=== PATIENT | female | born 1995 | race Caucasian/White ===

== ENCOUNTER 2020-08-15 17:26 | Emergency (ER) | payer OTHER, SELFPAY ==
[2020-08-15 17:54] VITALS: BP 150/92; PULSE 111; RESP 20; TEMP 37; O2SAT 100
--- NOTE | 2020-08-15 18:18 | ED.UPPEXIN ---
HPI - Extremity Injury (Upper) General Chief Complaint: Extremity Injury, Upper Stated Complaint: right wrist pain Time Seen by Provider: 08/15/20 18:19 Source: patient and RN notes reviewed History of Present Illness HPI narrative: Patient is a 25-year-old female who presents the urgent care with complaints of persistent right wrist pain. Patient states that she feels it popping at times . Patient states it difficult to bear weight on the right wrist. Denies of any known trauma or injury. 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 Patient has been using ice, elevating and taking Tylenol and ibuprofen for the pain. No other acute complaints. No acute distress noted. Patient aware of the plan of care. Some parts of this dictation were generated by voice recognition software and may contain typographical and/or grammatical inaccuracies. Related Data Home Medications Medication Instructions Recorded [facility]FA 1 tablet PO DAILY 08/15/20 08/15/20 [] Allergies Allergy/AdvReac Type Severity Reaction Status Date / Time peanut Allergy Anaphylaxis Verified 12/01/19 19:34 Review of Systems Review of Systems: Narrative: CONSTITUTIONAL: Denies fever, chills, or sweats. EYES: Denies visual changes, redness, or discharge. ENT: Denies rhinorrhea, congestion, sore throat, or otalgia. CARDIOVASCULAR: Denies chest pain, palpitations, or edema. RESPIRATORY: Denies cough or dyspnea. GASTROINTESTINAL: Denies abdominal pain, nausea, vomiting, or diarrhea. GENITOURINARY: Denies dysuria or hematuria. SKIN: Denies rash or itching. MUSCULOSKELETAL: Reports of right wrist pain NEUROLOGIC: Denies headache, numbness, or weakness. All other systems reviewed are negative, except as documented in HPI. PMFSH Social History Social History Smoking status: Unknown if ever smoked Gender identity (if verbalized by the patient): Female Comments At the time of my signature, I reviewed and agree with the nursing past medical, surgical, social, and family history. There is no relevant family history pertinent to the patient complaint. Exam Narrative: Exam Narrative: GENERAL: This is a well-nourished, well-developed patient, in no apparent distress. HEAD: normocephalic, atraumatic. EYES: PERRL. Sclera clear/white. Vision is grossly intact. EARS: External ears normal NOSE: External nose normal with no obvious nasal discharge, nares without redness, no rhinorrhea. THROAT: Mucous membranes moist NECK: Neck supple SKIN: warm, intact with no suspicious lesions or rash, good texture and turgor. NEURO: awake, alert, and oriented to person, place and time. There were no obvious focal neurologic abnormalities. EXTREMITIES: Mild pain with right wrist range of motion. No obvious deformity or injury noted to the right upper extremity. Positive strong right radial pulse with capillary refill less than 2 seconds. Patient unable to tolerate Tinel maneuver due to pain. Course Vital Signs Vital signs: Vital Signs Temperature 98.6 F 08/15/20 17:54 Pulse Rate 111 H 08/15/20 17:54 Respiratory Rate 08/15/20 17:54 Blood Pressure 150/92 H 08/15/20 17:54 Pulse Oximetry 100 08/15/20 17:54 Temperature 98.6 F 08/15/20 17:54 Pulse Rate 111 H 08/15/20 17:54 Respiratory Rate 08/15/20 17:54 Blood Pressure 150/92 H 08/15/20 17:54 Pulse Oximetry 100 08/15/20 17:54 Reviewed?patient is informed that they may have pre-hypertension or hypertension based on a blood pressure reading in the department. I recommend the patient call the primary care provider listed on their discharge instructions or a physician of their choice this week to arrange follow-up for further evaluation of possible pre-hypertension or hypertension. MDM - Extremity Injury (Upper) MDM Narrative
== END 2020-08-15 18:35 | disposition home or self-care (01) ==
PROVIDERS: Emergency Provider Nurse Practitioner Family; PCP Nurse Practitioner Family
DX: M77.9 Enthesopathy, unspecified (principal)
CPT/HCPCS: 99213; G0463

== ENCOUNTER 2021-03-01 11:51 | Emergency (ER) | payer OTHER, SELFPAY ==
--- NOTE | ~2021-03-01 | US_ITS ---
EXAMINATION: US pelvic complete w TV DATE: 03/01/2021 12:54 INDICATION: Abnormal uterine bleeding. TECHNIQUE: Multiple transabdominal and endovaginal sonographic images of the pelvis were obtained. COMPARISON: None. FINDINGS: The uterus measures 7.7 x 3.3 x 4.4 cm. The endometrial complex measures 5 mm in thickness. Couple l ess than 3 mm anechoic nabothian cysts at the cervix. The right ovary measures 3.2 x 2.1 x 2.8 cm. Th e left ovary measures 4.0 x 2.7 x 2.4 cm. There is normal vascular flow with both venous and arterial waveforms in the ovaries. There is small amount of likely physiologic free fluid in the pelvis. IMPRESSION: 1. Normal pelvic ultrasound. Reviewed, dictated and finalized at location A.
[2021-03-01 11:57] VITALS: BP 146/99; PULSE 99; RESP 14; TEMP 36.2; O2SAT 100
--- NOTE | 2021-03-01 12:11 | ED.GENADULT ---
HPI - General Adult General Chief complaint: Vaginal Bleeding Stated complaint: Vaginal Bleeding x1 month Time Seen by Provider: 03/01/21 11:58 Source: RN notes reviewed History of Present Illness HPI narrative: Patient presents to emergency department from home for dysfunctional uterine bleeding. Patient states she has been having vaginal bleeding for the past 1 month. She is followed by Dr. Tavarez and saw him approximately 10 days ago was placed on Provera which did help with her bleeding she states she stopped this approximately 3 days ago and began to have heavy bleeding again yesterday she states that with this she has had dizziness she denies any fevers or chills she states she does have some mild lower abdominal cramping denies any other symptoms at this time Related Data Home Medications Medication Instructions Recorded Confirmed PNV cmb#95-ferrous fumarate-FA 1 tablet PO DAILY 08/15/20 08/15/20 [] Allergies Allergy/AdvReac Type Severity Reaction Status Date / Time peanut Allergy Anaphylaxis Verified 12/01/19 19:34 Review of Systems Review of Systems: Narrative: Gen.: Denies fevers or chills ENT: Denies congestion Respiratory: Denies shortness of breath or cough CV: Denies chest pain or palpitations GI: Reports lower abdominal cramping, denies nausea, emesis or diarrhea see HPI Musculoskeletal: Denies back pain or muscle pain Neuro: Denies numbness, tingling, weakness or focal weakness Skin: Denies rash Except as documented, all other systems reviewed and negative [facility] Past Medical History Medical History (Updated 03/01/21 @ 13:41 by Glen Cavazos DO) Ankle fracture, right Celiac disease Foot fracture, right Surgical History Surgical History History of appendectomy History of cholecystectomy History of tonsillectomy Social History Social History Smoking status: Unknown if ever smoked Gender identity (if verbalized by the patient): Female Exam Narrative: Exam Narrative: APPEARANCE: No acute distress, nontoxic, resting in bed EYES: EOMI HEENT: Normocephalic, atraumatic, OMM RESPIRATORY: No respiratory distress Clear to auscultation bilaterally with no rhonchi wheezing or rales. CARDIOVASCULAR: Regular rate and rhythm without murmurs rubs or gallops. ABDOMINAL: Soft, nontender, nondistended, no rebound or guarding MUSCULOSKELETAl: Moves all extremities. No clubbing, cyanosis or edema. NEURO: Awake and alert. Following commands, speech normal, no focal deficits SKIN:: Warm, dry. No rashes lesions or abrasions PSYCHIATRIC: Normal affect/mood, Course Course Emergency Course: Called and discussed with Dr. Tavarez presentation work-up. He came to the emergency department to see the patient. At that time he gave her control taper he does SI give her Zofran for home and patient has a follow-up appointment on the of the month Discussed with patient results of workup and diagnosis. Discussed need for follow-up with primary care, proper use of medication, and reasons to return to the emergency department. Patient understands and agrees to current treatment plan Vital Signs Vital signs: Vital Signs Temperature 97.2 F L 03/01/21 11:57 Pulse Rate 99 03/01/21 11:57 Respiratory Rate 14 03/01/21 11:57 Blood Pressure 146/99 H 03/01/21 11:57 Pulse Oximetry 100 03/01/21 11:57 Temperature 97.2 F L 03/01/21 11:57 Pulse Rate 99 03/01/21 11:57 Respiratory Rate 14 03/01/21 11:57 Blood Pressure 146/99 H 03/01/21 11:57 Pulse Oximetry 100 03/01/21 11:57 Medical Decision Making Vital Signs Vital Signs: Vital Signs Temperature 97.2 F L 03/01/21 11:57 Pulse Rate 99 03/01/21 11:57 Respiratory Rate 14 03/01/21 11:57 Blood Pressure 146/99 H 03/01/21 11:57 Pulse Oximetry 100 03/01/21 11:57 Temperature 97.2 F L 03/01/21 11:57 Pul
[2021-03-01 13:01] LABS: Basophils Absolute Auto 0.1 K/mm3 (0.0-0.1); Basophils Percent Auto 0.9 % (0.2-1.2); Eosinophils Absolute Auto 0.1 K/mm3 (0-0.3); Eosinophils Percent Auto 1.2 % (0-4.4); Hematocrit 45.7 % (37.0-47.0); Hemoglobin 15.3 g/dL (12.0-15.0); Immature Granulocyte Absolute 0.14 K/mm3 (0.00-0.031); Immature Granulocyte Percent A 1.5 % (0-0.5); Lymphocytes Absolute Auto 2.42 K/mm3 (0.9-3.2); Lymphocytes Percent Auto 26.4 % (18.3-44.2); Mean Corpuscular HGB Conc 33.5 g/dl (32-36); Mean Corpuscular Hemoglobin 31.7 pg (26-34); Mean Corpuscular Volume 94.6 fl (80-100); Mean Platelet Volume 12.2 fl (7.4-10.4); Monocytes Absolute Auto 0.4 K/mm3 (0.1-0.6); Monocytes Percent Auto 4.7 % (2.6-8.5); Neutrophils Percent Auto 65.3 % (45.5-73.1); Platelet Count Result 296 k/mm3 (150-375); Red Blood Count 4.83 M/mm3 (4.2-5.4); Red Cell Distribution Width 12.2 % (11.5-14.5); White Blood Count 9.2 K/mm3 (4.5-10.0)
[2021-03-01 13:10] LABS: INR 0.8; Prothrombin Time 11.5 Seconds (11.1-14.7)
[2021-03-01 13:11] LABS: Partial Thromboplastin Time 23.3 SECONDS (22.3-36.8)
[2021-03-01 13:17] LABS: Alanine Aminotransferase 56 U/L (4-35); Albumin Level 4.6 g/dL (3.5-5.1); Alkaline Phosphatase 126 U/L (38-126); Anion Gap 9 mmol/L (8-16); Aspartate Amino Transferase 45 U/L (14-36); Bilirubin,Total 0.7 mg/dL (0.2-1.3); Blood Urea Nitrogen 8 mg/dL (7-17); Calcium 9.4 mg/dL (8.4-10.2); Carbon Dioxide 26 mmol/L (22-30); Chloride 105 mmol/L (98-107); Estimated CRCL calculation 112 ml/min; Estimated Glomerular Filt Rate > 60; Glucose 157 mg/dL (65-105); Potassium 4.1 mmol/L (3.4-5.0); Sodium 140 mmol/L (137-145)
[2021-03-01] MEDS: SODIUM CHLORIDE 0.9% IV 1,000 ML 999 ML IV CONT (13:25)
--- NOTE | 2021-03-01 13:48 | WPDCN ---
Assessment and Plan Assessment and plan (1) Dysfunctional uterine bleeding: Code(s): N93.8 - Other specified abnormal uterine and vaginal bleeding Status: Acute Assessment and Plan: Patient complains of daily heavy vaginal bleeding ?1 month. Patient and fianc? would like to conceive in the near future. Patient started on Provera daily with only minimal improvement in symptoms. Blood pressure mildly elevated with normal pulse in the emergency room. Hemoglobin and hematocrit are stable. Pelvic ultrasound was performed which showed 7.7 x 3.3 x 4.4 cm. The endometrial complex measures 5 mm in thickness. Couple less than 3 mm anechoic nabothian cysts at the cervix. The right ovary measures 3.2 x 2.1 x 2.8 cm. The left ovary measures 4.0 x 2.7 x 2.4 cm. There is normal vascular flow with both venous and arterial waveforms in the ovaries. Pt stable on evaluation Will start patient on OCP taper. Specific administration instructions given. discussed potentia increased risk for VTE. precautions given. Rx for zofran given for Nausea associated with OCP taper pt has outpatient appointment on 03/15/21 HPI Data of Consult Date/Time: 03/01/21 13:48 Primary Care Provider: Esperanza Perez, [employer] Consult Narrative Narrative: Elias Orantes is a 25 year old female who presents to the ED with heavy vaginal bleeding. Pt initially presented to the office with similar complaints on 02/20/21. Patient was started on Provera 10 mg daily. She states that her bleeding slowed slightly with the medication. Patient has been having daily vaginal bleeding since 29 January. Patient states prior to presenting to the emergency room she was going through 2 tampons per hour. Patient states her tampons were saturated completely through. Patient was reporting some fatigue and dizziness. She denies any palpitations or syncope. Patient denies any abdominal pain or cramping. Review of Systems Cardiovascular: Cardiovascular: Denies chest pain, Denies leg edema, Denies palpitations, Denies dyspnea and Denies dyspnea on exertion Respiratory: Respiratory: Denies cough, Denies dyspnea and Denies dyspnea on exertion Gastrointestinal: Gastrointestinal: Denies abdominal pain, Denies constipation, Denies diarrhea, Denies nausea and Denies vomiting Genitourinary: Genitourinary: Denies hematuria, Denies urinary frequency, Denies dysuria, Denies pelvic pain, Denies urinary incontinence and Denies vaginal discharge Neurologic: Reports system reviewed and no additional complaints, except as documented Psychiatric: Psychiatric: Reports no additional psychiatric complaints Endocrine: Endocrine: Denies palpitations PMFSH Past Medical History Medical History (Updated 03/01/21 @ 13:41 by Glen Cavazos DO) Ankle fracture, right Celiac disease Foot fracture, right Surgical History Surgical History History of appendectomy History of cholecystectomy History of tonsillectomy Social History Social History Smoking status: Unknown if ever smoked Gender identity (if verbalized by the patient): Female Meds Home Medications and Allergies Home Medications Medication Instructions Recorded Confirmed Type PNV cmb#95-ferrous fumarate-FA 1 tablet PO DAILY 08/15/20 08/15/20 History [] methylprednisolone [Medrol (Shashi)] See Rx Instructions .ROUTE 08/15/20 Rx .COMPLEX #21 each ondansetron 4 mg PO Q6H PRN #10 tablet 03/01/21 Rx Allergies Allergy/AdvReac Type Severity Reaction Status Date / Time peanut Allergy Anaphylaxis Verified 12/01/19 19:34 Vital Signs Vital Signs - 24 hr 03/01/21 11:57 Temperature 36.2 C L Pulse Rate 99 Respiratory Rate 14 Blood Pressure 146/99 H Pulse Oximetry 100 Exam Const: General: no acute distress Eyes: EOM: EOMs intact bilaterally Neck: Neck: supple Thyroid: thyroid normal Flor
[2021-03-01 14:06] VITALS: BP 123/85; PULSE 85; RESP 14; O2SAT 100
== END 2021-03-01 14:06 | disposition home or self-care (01) ==
PROVIDERS: Emergency Provider Emergency Medicine; PCP Nurse Practitioner Family
DX: N93.8 Other specified abnormal uterine and vaginal bleeding (principal); K90.0 Celiac disease
CPT/HCPCS: 36415; 76830; 76856; 80053; 81025; 85025; 85610; 85730; 96360; 99284; J7030

== ENCOUNTER 2022-06-04 11:34 | Emergency (ER) | payer OTHER, SELFPAY ==
--- NOTE | ~2022-06-04 | XR_ITS ---
EXAMINATION: XR wrist RT min 3V INDICATION: Right wrist pain TECHNIQUE: Four views of the right wrist are obtained. COMPARISON: None available FINDINGS: There is no fracture, dislocation, or subluxation. The bones, soft tissues, and joint space s are normal. IMPRESSION: 1. No acute osseous abnormality. Reviewed, dictated and finalized at location B.
[2022-06-04 11:44] VITALS: BP 130/73; PULSE 95; RESP 16; TEMP 37.5; O2SAT 100
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
== END 2022-06-04 13:06 | disposition home or self-care (01) ==
PROVIDERS: Emergency Provider Registered Nurse
DX: S63.501A Unspecified sprain of right wrist, initial encounter (principal); S66.911A Strain of unspecified muscle, fascia and tendon at wrist and hand level, right hand, initial encounter; X58.XXXA Exposure to other specified factors, initial encounter; E11.9 Type 2 diabetes mellitus without complications; K90.0 Celiac disease
CPT/HCPCS: 73110; 99213; G0463

== ENCOUNTER 2023-07-31 08:20 | Outpatient (CLI) | payer OTHER, SELFPAY ==
--- NOTE | 2023-07-31 08:27 | ECG_ITS ---
Measurements Intervals [place] Rate: 82 P: 57 DE: 142 QRS: 7 QRSD: 90 T: 3 QT: 366 QTc: 430 Interpretive Statements SINUS RHYTHM POOR R-WAVE PROGRESSION ABNORMAL ECG NO PREVIOUS ECG AVAILABLE FOR COMPARISON Electronically Signed On 07-31-2023 9:45:37 CDT by Terrence Lozano M.D.
[2023-07-31 09:03] LABS: Anion Gap 7 mmol/L (8-16); Blood Urea Nitrogen 13 mg/dL (7-17); Carbon Dioxide 27 mmol/L (22-30); Chloride 103 mmol/L (98-107); Estimated Glomerular Filt Rate > 60; Glucose 148 mg/dL (65-110); Potassium 4.5 mmol/L (3.4-5.0); Sodium 137 mmol/L (137-145)
== END 2023-07-31 08:21 | disposition home or self-care (01) ==
LOC: ANHSURGERY 08:24
PROVIDERS: Anesthesiology; Visit Provider Obstetrics & Gynecology
DX: Z01.810 Encounter for preprocedural cardiovascular examination (principal); Z01.812 Encounter for preprocedural laboratory examination; R10.2 Pelvic and perineal pain; E11.9 Type 2 diabetes mellitus without complications; R94.31 Abnormal electrocardiogram [ECG] [EKG]
CPT/HCPCS: 36415; 80048; 86850; 86900; 86901; 93005

== ENCOUNTER 2023-08-06 01:46 | Day surgery (SDC) | payer OTHER, SELFPAY ==
[2023-07-29 11:19] VITALS: BMI 36.6
--- NOTE | 2023-07-29 11:23 | PC.NURSE ---
Report to the Outpatient Waiting Room, entrance under the green pavilion located off [facility], at time 12:00 on date 08/06/23. Planned Procedure Time: 2:00. Time changes happen often and if your time is changed the preop area will call you the afternoon before. - You and your visitor will be asked to self-screen and do not enter if you have any COVID symptoms. - A mask is optional within the hospital at this time. Patients may have clear liquids (water, carbonated beverages, clear teas, apple juice) until 3 hours prior to surgery (11:00) with a maximum of 20 ounces. - No food from midnight until time of surgery Take the following medications with a SIP of water the morning of surgery: LEXAPRO DO NOT STOP ANY OF YOUR OTHER PRESCRIPTION MEDICATIONS PRIOR TO SURGERY ?EXCEPT THE FOLLOWING Medications to discontinue per physician: N/A Date to take last dose: N/A Please no make-up, nail montserratian, hairspray, perfume, deodorant, or body powder the day of surgery. No jewelry (including any body piercings) or valuables the day of surgery, leave them at home. Please take a shower or bath the night before, or the morning of, surgery with an antibacterial soap. Wear comfortable, loose fitting clothing. - Jewelry must be removed prior to entering the operating room. Rings and piercings that are not removed may be cut off. - The hospital will not accept responsibility for valuables. - Please leave all valuables, including medications, at home the day of surgery. If you are going home after surgery, a licensed tow car driver must drive you home. - NO public transportation without another adult if you receive anesthesia. - We recommend that an adult stay with you for 24 hours following discharge. - We also recommend that you do not drive, make important decision, drink alcoholic beverages, or take any drugs that were not prescribed by your health care provider for at least 24 hours after your discharge time. Follow any additional instructions given to you from your surgeon. If you or anyone in your household have experienced Covid symptoms in the past week, please notify your surgeon or the nurse liaison at the phone number below for possible testing. Telephone instructions given to PT - TU ESCALANTE and asked if any additional questions and then verbalized understanding. Patient advised to call surgeon office or pre surgery nurse liaison [phone] if any additional questions.
[2023-08-06] VITALS (9 sets, daily range): BP systolic 91–145; BP diastolic 46–75; PULSE 60–97; RESP 12–24; TEMP 36.6–36.8; O2SAT 94–100
--- NOTE | 2023-08-06 08:40 | PM.IMHP ---
H&P: HPI History of Present Illness Date/Time: 08/06/23 08:40 Chief Complaint: Heavy, painful periods Narrative: 28 y/o G0 with monthly menses. She has 7 days of cramping preceding the menses, then 3 days of heavy flow with cramping, and 2-3 more days of flow afterward. Ultrasound exam shows an unremarkable uterus, myometrium, and endometrial complex. There is a right ovarian follicle measuring 2.1 cm. Otherwise, the adnexa are unremarkable. Because of worsening pain and bleeding, and because of the longstanding nature of her problem, she is interested in surgical management. Review of Systems Review of Systems: All systems reviewed & are unremarkable except as noted in HPI and below PMFSH Past Medical History Medical History Ankle fracture, right Celiac disease Diabetes Foot fracture, right History of depression Surgical History Surgical History History of appendectomy History of cholecystectomy History of tonsillectomy Social History Social History Smoking status: Never smoker Alcohol intake: current Drinks per week: 1 Substance use: never Substance use type: does not use Living arrangements: with family Gender identity (if verbalized by the patient): Female Spiritual care concerns: No Meds Home Medications and Allergies Home Medications Medication Instructions Recorded Confirmed Type escitalopram oxalate 10 mg tablet 10 mg PO DIRECTED 06/04/22 07/29/23 History empagliflozin 25 mg tablet 25 mg PO DAILY 07/29/23 07/29/23 History (Jardiance) Allergies Allergy/AdvReac Type Severity Reaction Status Date / Time metformin Allergy Hives Verified 07/29/23 11:18 peanut Allergy Anaphylaxis Verified 07/29/23 11:18 Exam Const: Orientation/consciousness: patient oriented x3 Other: Well-developed, well-nourished female in no acute distress. Neck: Thyroid: thyroid normal Lymphatic: no lymphadenopathy noted (in neck, axilla or inguinal nodes) Resp: Effort & Inspection: normal respiratory effort Auscultation: clear to auscultation bilaterally Cardio: Rate: regular rate Rhythm: regular rhythm Heart sounds: S1 normal heart sound present and S2 normal heart sound present GI: Other: ABD: Soft, nontender, nondistended. No guarding or rebound tenderness. No hepatosplenomegaly. : General: Yes no CVA tenderness Other: External genitalia: normal female hair distribution, without lesion. Urethral meatus: no lesion, non prolapsed. Bladder: no mass, nontender Vagina: well-estrogenized, without lesion or discharge. No cystocele or rectocele. Cervix: no lesion or discharge. Uterus: small, anteverted, freely mobile, nontender Adnexa: no mass or tenderness. Anus/perineum: no lesions, nontender Back/Spine/Pelvis: Back: no CVA tenderness Skin: General skin exam: normal color and no rashes or lesions noted Neuro: General: patient oriented x3 Extrem: Other: Extremities: nontender with no edema Psych: Mental Status: mental status grossly normal Affect: normal affect Assessment and Plan Assessment and plan (1) Menorrhagia: Code(s): N92.0 - Excessive and frequent menstruation with regular cycle Status: Acute Assessment and Plan: A: Longstanding and worsening menorrhagia with dysmenorrhea. P: We have reviewed medical as well as surgical approaches to her problem. She is interested in the latter. Specifically, I have offered her a diagnostic laparoscopy with hysteroscopy, dilation and sharp curettage. She understands risks of surgery to include risks of anesthesia, risks of pain, infection, bleeding, blood products, thromboembolic phenomena and damage to adjacent structures such as bowel, bladder, ureters, blood vessels and nerves. She understands all these risks and e
[2023-08-06] MEDS: ACETAMINOPHEN 500 MG TABLET 1000 MG PO (13:06)
[2023-08-06] MEDS: KETOROLAC 15 MG/ML VIAL (*BKC) IV PUSH ×2 (13:07→15:58)
[2023-08-06 13:13] LABS: Glucose Point of Care 112 mg/dl (65-105)
--- NOTE | 2023-08-06 13:13 | P.PNAN_ITS ---
Anes - Initial Pre Proc Eval Procedure: Operation Date: 08/06/23 14:00 Proposed Procedures p Diagnostic Laparoscopy, Hysteroscopy Dilation and Curettage - Ravi Francis MD Date/Time: 08/06/23 13:13 Surgeon: Ravi Francis MD Pre Op Diagnosis: irr. bleeding, pelvic pain, dysmenorrhea Patient Data Age: 28 Gender: F Height: 1.57 m Weight: 91.1 kg Last Vital Signs Temp 36.6 C 08/06/23 13:00 Pulse 89 08/06/23 13:00 Resp 16 08/06/23 13:00 BP 139/75 08/06/23 13:00 Pulse Ox 100 08/06/23 13:00 O2 Del Method Room Air 08/06/23 13:00 Allergies Allergy/AdvReac Type Severity Reaction Status Date / Time metformin Allergy Hives Verified 08/06/23 12:34 peanut Allergy Anaphylaxis Verified 08/06/23 12:34 Home Medications Medication Instructions Recorded Confirmed Type escitalopram oxalate 10 mg tablet 10 mg PO DIRECTED 06/04/22 07/29/23 History empagliflozin 25 mg tablet 25 mg PO DAILY 07/29/23 07/29/23 History (Jardiance) Laboratory Tests 08/06/23 13:11 POC Capillary Glucose 112 H mg/dl (65-105) Patient hx anesthesia problems: other (panic attacks) Family hx anesthesia problems: other (panic attacks) Results Review: All pre-operative results and documents have been reviewed as part of the pre- operative evaluation. [facility] Past Medical History Medical History Ankle fracture, right Celiac disease Diabetes Foot fracture, right History of depression Surgical History Surgical History History of appendectomy History of cholecystectomy History of tonsillectomy Social History Social History Smoking status: Never smoker Alcohol intake: current Drinks per week: 1 Substance use: never Substance use type: does not use Living arrangements: with family Gender identity (if verbalized by the patient): Female Spiritual care concerns: No Anes - Eval Final PreProcedure Day of Procedure 08/06/23 13:13 Patient weight: obese Heart: regular rate and rhythm Lungs: clear to auscultation Airway: Mallampati scale class II Neurological: alert and oriented Last oral intake: >/= 8 hours ASA classification: III Emergent: no Anesthetic plan: proceed Anesthesia type and monitoring: general ETT and standard monitoring Results Review: All pre-operative results and documents have been reviewed as part of the pre- operative evaluation. Informed Consent: The patient's anesthetic plan and its attendant risks and benefits were discussed with the patient/family/POA. Questions were solicited and answers provided to the satisfaction of the patient/family/POA.
[2023-08-06] MEDS: LACTATED RINGERS 1,000 ML 30 ML IV CONT ×2 (13:20→15:57)
--- NOTE | 2023-08-06 13:23 | WPDHPUPDATE1 ---
History and Physical Update Update Date/Time: 08/06/23 13:23 History and Physical has been reviewed, including an updated exam of the patient. There are NO changes in the patient's condition. Risks, benefits, and alternatives have been discussed and questions answered. Patient agrees to proceed with procedure.
[2023-08-06] MEDS: MIDAZOLAM HCL (*CRX) 2 MG/2 ML VIAL IV PUSH (13:24)
[2023-08-06] MEDS: LIDOCAINE HCL 1% LOCAL INJ 20 ML VIAL 10 ML INFILTRATE (14:30)
--- NOTE | 2023-08-06 14:32 | W.PM.PROC2 ---
Procedure Note - Detailed Date of Procedure 08/06/23 Pre-op Diagnosis Menorrhagia Dysmenorrhea Pelvic pain Post-op Diagnosis Same Procedure Performed Diagnostic laparoscopy Hysteroscopy Dilation and sharp curettage Surgeon Ravi Francis MD Anesthesia General and Local (1% lidocaine) Findings Gallbladder and vermiform appendix not seen, consistent with prior surgical removal. Uterus, bilateral tubes and ovaries, bilateral round and uterosacral ligaments, anterior and posterior cul de sac all unremarkable. Small, bloody fluid in the posterior cul-de-sac, and an apparently resolving right ovarian corpus luteum cyst. On hysteroscopy, the endometrial cavity was unremarkable. Both tubal ostia seen. Description of Procedure The patient was taken to the operating room where general endotracheal anesthesia was administered. She was prepared and draped in the usual sterile fashion in the dorsal lithotomy position. The bladder was drained with a red rubber catheter. A sterile speculum was inserted into the vagina and the anterior lip of the cervix was grasped with a single-toothed tenaculum. The acorn uterine manipulator was placed. The speculum was withdrawn. Gloves were changed and attention was turned to the abdomen. An infraumbilical skin incision was made with a scalpel. The abdomen was tented and a 5 millimeter bladeless trocar trocar was advanced under direct laparoscopic visualization. Pneumoperitoneum was administered using carbon dioxide gas. A second 5 mm port was placed, again under direct visualization. A survey of the pelvis and abdomen yielded the findings noted above. Hemostasis was excellent. The trocar was withdrawn and the gas was allowed to escape. The skin incisions were reapproximated using 4-0 Monocryl in interrupted subcuticular fashion. Dermaflex was applied externally. Attention was redirected to the vagina, where the acorn manipulator was withdrawn and the speculum reintroduced. Ten mL of 1% lidocaine was administered in a paracervical block. The cervix was then gently dilated using Hegar dilators until a 7 mm dilator could be passed. Hysteroscopy was performed using sterile saline as a distention medium. Findings are as noted above. Sharp curettage was then performed, and endometrial curettings were collected on a Telfa pad and passed off to be sent to pathology. Hemostasis was excellent. Sponge, lap, needle and instrument counts were correct. The patient was awakened and taken to the recovery room in stable condition. I was present and scrubbed through the entire procedure. Implants None Estimated Blood Loss 5 Drains No Packing No Pathology Yes (Endometrial curettings) Complications None Condition Stable Disposition PACU
[2023-08-06] MEDS: fentaNYL CITRATE INJ (*CRX) 100 MCG/2 ML VIAL 25 MCG IV PUSH ×7 (14:42→15:08)
[2023-08-06] MEDS: HYDROmorphone HCL INJ (*CRX) 1 MG/ML SYR IV PUSH ×3 (15:12→15:30)
[2023-08-06] MEDS: ONDANSETRON INJ 4 MG/2 ML VIAL IV PUSH (15:50)
[2023-08-06] MEDS: oxyCODONE HCL (*CRX) 5 MG TAB IR PO (16:31)
== END 2023-08-06 17:05 | disposition home or self-care (01) ==
PROVIDERS: Visit Provider Obstetrics & Gynecology
PROC: 0UDB8ZZ Extraction of Endometrium, Via Natural or Artificial Opening Endoscopic (ICD-10-PCS; CPT 58558; principal; 2023-08-06 14:00)
DX: N92.0 Excessive and frequent menstruation with regular cycle (principal); N94.6 Dysmenorrhea, unspecified; R10.2 Pelvic and perineal pain; N83.11 Corpus luteum cyst of right ovary; E11.9 Type 2 diabetes mellitus without complications; F32.A Depression, unspecified; Z79.84 Long term (current) use of oral hypoglycemic drugs; E66.9 Obesity, unspecified; Z68.36 Body mass index [BMI] 36.0-36.9, adult
CPT/HCPCS: 49320; 58558; 82948; 88305; A9270; J0330; J1100; J1170; J1885; J2250; J2405; J2704; J3010; J7120

== ENCOUNTER 2023-12-29 10:56 | Emergency (ER) | payer OTHER, SELFPAY ==
[2023-12-29 11:06] VITALS: BP 139/70; PULSE 94; RESP 20; TEMP 36.4; O2SAT 100
--- NOTE | 2023-12-29 11:17 | ED.ABDPAIN ---
HPI - Abdominal Pain General Chief Complaint: Nausea/Vomiting/Diarrhea Stated Complaint: Abdominal pain History of Present Illness HPI narrative: PATIENT PRESENTS WITH ABDOMINAL PAIN. PATIENT STATES SHE TAKES ZOFRAN AT HOME THAT SHE HAD LEFT OVER WHEN SHE HAD COVID WITH THE NAUSEA AND PAIN AND IS NOT HELP MUCH. PATIENT STATES THE PAIN IS WORSE AFTER SHE EATS FRIED OR SPICY FOODS. PATIENT STATES THERE IS A FAMILY HISTORY OF GERD BUT SHE HAS NOT BEEN DIAGNOSED TO THE STATE. PATIENT DENIES ANY CHEST PAIN NO SHORTNESS OF BREATH NO FEVER. PATIENT DENIES ANY CONSTIPATION AND NO DIARRHEA. Related Data Home Medications Medication Instructions Recorded Confirmed escitalopram oxalate 10 mg tablet 10 mg PO DAILY 06/04/22 12/29/23 empagliflozin 25 mg tablet 25 mg PO DAILY 07/29/23 12/29/23 (Jardiance) dulaglutide 0.75 mg/0.5 mL See Rx Instructions .Route .COMPLEX 12/29/23 12/29/23 subcutaneous pen injector (Trulicity) ondansetron 4 mg disintegrating 4 mg PO Q8H PRN Nausea 12/29/23 12/29/23 tablet Allergies Allergy/AdvReac Type Severity Reaction Status Date / Time metformin Allergy Hives Verified 12/29/23 11:23 peanut Allergy Anaphylaxis Verified 12/29/23 11:23 Review of Systems Review of Systems: CONSTITUTIONAL: DENIES FEVER, CHILLS, OR SWEATS. EYES: DENIES VISUAL CHANGES, REDNESS, OR DISCHARGE. ENT: DENIES RHINORRHEA, CONGESTION, SORE THROAT, OR OTALGIA. CARDIOVASCULAR: DENIES CHEST PAIN, PALPITATIONS, OR EDEMA. RESPIRATORY: DENIES COUGH OR DYSPNEA. GASTROINTESTINAL: DENIES ABDOMINAL PAIN, NAUSEA, VOMITING, OR DIARRHEA. GENITOURINARY: DENIES DYSURIA OR HEMATURIA. SKIN: DENIES RASH OR ITCHING. MUSCULOSKELETAL: DENIES BACK PAIN, JOINT PAIN, OR MYALGIA. NEUROLOGIC: DENIES HEADACHE, NUMBNESS, OR WEAKNESS. PSYCHIATRIC: DENIES ANXIETY OR DEPRESSION. [facility] Past Medical History Medical History Ankle fracture, right Celiac disease Diabetes Foot fracture, right History of depression Surgical History Surgical History History of appendectomy History of cholecystectomy History of tonsillectomy Social History Social History Smoking status: Never smoker Alcohol intake: current Drinks per week: 1 Substance use: never Substance use type: does not use Living arrangements: with family Gender identity (if verbalized by the patient): Female Spiritual care concerns: No Comments AT TIME OF SIGNATURE, AGREE WITH NURSING PAST MEDICAL, SURGICAL, SOCIAL AND FAMILY HISTORY. THERE IS NO RELEVANT FAMILY HISTORY PERTINENT TO THE PRESENTING COMPLAINT Exam Narrative: GENERAL: WELL-APPEARING, WELL-NOURISHED, AND IN NO ACUTE DISTRESS. HEAD: NORMOCEPHALIC, ATRAUMATIC. EYES: PERRLA AND EOMI. ENT: NARES CLEAR, NO RHINORRHEA OR EPISTAXIS. MUCOUS MEMBRANES MOIST. NECK: SUPPLE. CHEST: CLEAR TO AUSCULTATION. NO RESPIRATORY DISTRESS. HEART: REGULAR RATE AND RHYTHM. NO MURMUR HEARD. NORMAL PERIPHERAL PULSES. ABDOMEN: SOFT, NONTENDER, NONDISTENDED, NORMAL ACTIVE BOWEL SOUNDS. NO POSITIVES SIGNS. MILD EPIGASTRIC PAIN. EXTREMITIES: NORMAL RANGE OF MOTION. NO EDEMA. SKIN: WARM, DRY, NO RASH. NEURO: NO FOCAL DEFICITS. ALERT AND ORIENTED X3. REYNA COMA SCALE EYE OPENING: SPONTANEOUS 4 REYNA COMA SCALE MOTOR: OBEYS COMMANDS 6 REYNA COMA SCALE VERBAL: ORIENTED 5 REYNA COMA SCALE TOTAL 15 Course Course Level of Care: Express Care Visit Vital Signs Vital signs: Vital Signs Temperature 36.4 C 12/29/23 11:06 Pulse Rate 94 12/29/23 11:06 Respiratory Rate 12/29/23 11:06 Blood Pressure 139/70 12/29/23 11:06 Pulse Oximetry 100 12/29/23 11:06 Oxygen Delivery Room Air 12/29/23 11:06 Temperature 36.4 C 12/29/23 11:06 Pulse Rate 94 12/29/23 11:06 Respiratory Rate 12/29/23 11:06 Blood Pressure 1
== END 2023-12-29 11:25 | disposition home or self-care (01) ==
PROVIDERS: Emergency Provider Nurse Practitioner Family
DX: K21.9 Gastro-esophageal reflux disease without esophagitis (principal); K90.0 Celiac disease; E11.9 Type 2 diabetes mellitus without complications; F32.A Depression, unspecified
CPT/HCPCS: 99213; G0463

== ENCOUNTER 2024-03-04 17:15 | Emergency (ER) | payer OTHER, SELFPAY ==
--- NOTE | ~2024-03-04 | XR_ITS ---
EXAMINATION: XR lumbar spine 2-3V DATE: 03/04/2024 18:01 INDICATION: Low back pain post fall TECHNIQUE: Anteroposterior and lateral views of the lumbar spine, and cone-down lateral view of the l umbosacral junction were obtained. COMPARISON: None. FINDINGS: Alignment is normal. Vertebral body heights are normal. No acute fracture. There is a normal variant L4 limbus vertebra with incompletely fused accessory apophyseal center at the anterosuperior margin o f the vertebral body. Disc heights are normal. Mild facet osteoarthritis in the lower lumbar spine. H ypertrophic osteophytes along the lateral rim of the left acetabulum. Cholecystectomy clips in right upper quadrant. Visualized lung bases are clear with no pleural effusion. IMPRESSION: 1. Normal variant L4 limbus vertebra and mild lower lumbar facet osteoarthritis. No acute osseous abn ormality. Reviewed, dictated and finalized at location A. IMPRESSION: 1. Normal variant L4 limbus vertebra and mild lower lumbar facet osteoarthritis . No acute osseous abnormality.
[2024-03-04 17:23] VITALS: BP 145/82; PULSE 103; RESP 18; TEMP 36.7; O2SAT 99
[2024-03-04 17:28] VITALS: BP 145/82; PULSE 103; RESP 18; TEMP 36.7; O2SAT 99
--- NOTE | 2024-03-04 17:49 | ED.BACK ---
HPI - Back Pain/Injury General Chief Complaint: Back Pain/Injury Stated Complaint: Low Back Pain Time Seen by Provider: 03/04/24 17:39 Source: patient, RN notes reviewed and old records reviewed Mode of arrival: ambulatory Limitations: no limitations History of Present Illness HPI Narrative: 28-year-old female to Express Care for complaint lower back pain for 2 weeks. Patient states she was pulled off of her porch by her large dog backwards onto grass, landing on her lower back. Patient has attempted to treat at home with naproxen with little relief. Patient denies loss bowel or bladder, denies saddle anesthesia, weakness. Patient endorses sciatica to left side as well as numbness and tingling to left lower extremity with palpation of left lower back. Related Data Home Medications Medication Instructions Recorded Confirmed escitalopram oxalate 10 mg tablet 10 mg PO DAILY 06/04/22 12/29/23 dulaglutide 0.75 mg/0.5 mL See Rx Instructions .Route .COMPLEX 12/29/23 12/29/23 subcutaneous pen injector (Trulicity) ondansetron 4 mg disintegrating 4 mg PO Q8H PRN Nausea 12/29/23 12/29/23 tablet cetirizine 10 mg tablet mg 03/04/24 empagliflozin 25 mg tablet mg 03/04/24 (Jardiance) norethindrone 1 mg-ethinyl tablet 03/04/24 estradiol 20 mcg (21)-iron 75 mg (7) tablet (Blisovi Fe 12/20 (28)) sitagliptin phosphate 100 mg mg 03/04/24 tablet (Januvia) Allergies Allergy/AdvReac Type Severity Reaction Status Date / Time metformin Allergy Hives Verified 03/04/24 17:18 peanut Allergy Anaphylaxis Verified 03/04/24 17:18 Review of Systems Review of Systems: All systems reviewed & are unremarkable except as noted in HPI and below Constitutional: Constitutional: Reports no additional constitutional complaints Eyes: Eyes: Reports no additional eye complaints ENT: Reports system reviewed and no additional complaints, except as documented Cardiovascular: Cardiovascular: Reports no additional cardiovascular complaints, Denies chest pain and Denies dyspnea Respiratory: Respiratory: Reports no additional respiratory complaints, Denies cough and Denies dyspnea Gastrointestinal: Gastrointestinal: Denies change in bowel habits Genitourinary: Genitourinary: Denies urinary incontinence Musculoskeletal: Musculoskeletal: Reports back pain ( lumbar), Reports numbness ( LLE with palpation of left lower back), Reports radiating pain into limb ( LLE) and Reports tingling (LLE with palpation of left lower back) Neurologic: Reports system reviewed and no additional complaints, except as documented Psychiatric: Psychiatric: Reports no additional psychiatric complaints PMFSH Past Medical History Medical History Ankle fracture, right Celiac disease Diabetes Foot fracture, right History of depression Surgical History Surgical History History of appendectomy History of cholecystectomy History of tonsillectomy Social History Social History Smoking status: Never smoker Alcohol intake: current Drinks per week: 1 Substance use: never Substance use type: does not use Living arrangements: with family Gender identity (if verbalized by the patient): Female Spiritual care concerns: No Comments At the time of my signature, I reviewed and agree with the nursing past medical, surgical, social, and family history. There is no relevant family history pertinent to the patient complaint. Exam Const: General: cooperative, healthy appearing, comfortable, no acute distress, alert and well nourished Nutritional Appearance: well nourished Orientation/consciousness: patient oriented x3 Limitations: no limitations HENMT: Head: normal to inspection Ears: external ears normal Face/Nose/Sinus: Normal external nose present, Normal nares pr
== END 2024-03-04 19:12 | disposition home or self-care (01) ==
PROVIDERS: Emergency Provider Nurse Practitioner Family
DX: M54.32 Sciatica, left side (principal); S39.012A Strain of muscle, fascia and tendon of lower back, initial encounter; W17.89XA Other fall from one level to another, initial encounter; M47.816 Spondylosis without myelopathy or radiculopathy, lumbar region; K90.0 Celiac disease; E11.9 Type 2 diabetes mellitus without complications; F32.A Depression, unspecified
CPT/HCPCS: 72100; 99213; G0463

== ENCOUNTER 2025-04-28 17:10 | Emergency (ER) | payer OTHER, SELFPAY ==
--- OUTSIDE RECORDS SUMMARY | 2025-04-28 17:12 | XMS_ITS | Clinical Summary ---
Author Organization [facility] Address [address] [place] [address] Care Team Providers Care Patient Service Representative Name Role Phone Emil Weiner MD Primary Care Provider + Allergies Active Allergy Reactions Criticality Noted Date Comments Latex Hives,Rash Reaction: Hives, , Reaction: Hives, Skin Rash, Metformin Rash Medium 06/05/2021 Peanut Anaphylaxis,Hives,Rash Reaction: Anaphylaxis, , Reaction: Hives, Skin Rash, Medications lancets misc Use as directed up to 4 times a day. 100 each 1 03/22/20 Active blood glucose diagnostic (glucose blood) strip Use as directed up to four times a day. 100 each 1 03/22/20 Active alcohol swabs (Alcohol Wipes) pads, medicated Use as directed. 100 each 03/22/20 Active blood glucose strip-disp meter kit Use as directed. 1 kit 03/22/20 Active insulin glargine (insulin glargine) 100 unit/mL (3 mL) pen for injection Inject 25 Units under the skin nightly 15 mL 03/22/20 22 Active insulin lispro (HumaLOG, ADMELOG) 100 unit/mL pen for injectionIndicatio ns:type 2 diabetes mellitus Inject 10 Units under the skin 3 (three) times a day with meals 18 mL 03/22/20 22 Active naproxen (ANAPROX DS) 550 mg tabletIndications: Pain Take 1 tablet (550 mg total) by mouth 2 (two) times a day with meals 14 tablet 03/30/20 23 Active promethazine-DM (PROMETHAZINE-DM) 1.25-3 mg/mL syrupIndications:C OVID-19 virus infection Take 5 mL by mouth 4 (four) times a day as needed for cough (And runny nose) Collaborating physician Jett Marquez MD 118 mL 11/26/20 Active naproxen (NAPROSYN) 500 mg tabletIndications: COVID-19 virus infection Take 1 tablet (500 mg total) by mouth 2 (two) times a day with meals P.r.n. pain and/or fever. Collaborating physician Jett Marquez MD 30 tablet 11/26/20 Active ondansetron ODT (ZOFRAN-ODT) 4 mg disintegrating tabletIndications: COVID-19 virus infection Take 1 tablet (4 mg total) by mouth every 8 (eight) hours as needed for nausea Collaborating physician Jett Marquez MD 20 tablet 11/26/20 Active Active Problems Problem Noted Date Diagnosed Date COVID-19 virus infection 11/26/2023 Type 2 diabetes mellitus wit h hyperglycemia, without long-term current use of insulin 03/21/2022 Assessment & Plan (03/21/2022 3:19 PM CDT): Patient diagnosed with diabetes type 2 within the last year. A1c 6 months ago was 6.0, today is 12.2. Patient states that she was formally taking metformin but stopped after getting bad GI symptoms with a rash. Patient was told to continue with lifestyle modification. Blood sugar on admission 400. Patient started on IV fluids and admitted for further control blood sugar control. States she feels much better now since being admitted. - discontinue IV fluids LR 75 mL/hr - A1c today 12.2 - sliding scale insulin: 14 units glargine Q night, 10 units t.i.d. with meals along with SSI - will adjust sliding scale define abdomen dosing - special educator - Nutrition Education - patient to follow-up with Dr. Weiner as outpatient for blood sugar and medication management. Hyponatremia 03/21/2022 Assessment & Plan (03/21/2022 3:23 PM CDT): Most likely secondary to hyperglycemia and dehydration. - IV fluid - will continue to follow-up BMPs Obesity 03/21/2022 Assessment & Plan (03/21/2022 4:13 PM CDT): BMI 35.52 - discussed risks of obesity and association with chronic medical problems including HTN, DM, and ABHISHEK - advised patient on importance of maintaining a diet and exercise regimen including cardiovascular and weight-bearing exercises - nutrition consultation Irritable bowel syndrome with diarrhea 0 Assessment & Plan (03/21/2022 4:12 PM CDT): Stable at this time. Not on any current medications Assessment & Plan (10/03/2020 3:14 PM LEATHER TACKER): Yrs of pc urgency with loose bms and cramping and bloating. Had GB removed yrs ago. No systemic sx/signs. Sounds like ibs-d. Discussed viberzi but will try hi fiber diet first. Recap in 4 weeks. Migraine 02/18/2014 Overview (03/06/2017): MIGRNE UNSP WO NTRC MGRN Immunizations Immunization Administration Dates Next Due Influenza, Trivalent, IM (MDV) 01/29/2014 Surgical History Surgery Date Site/Laterality Comments APPENDECTOMY 2010 Appendectomy CHOLECYSTECTOMY 2013 Cholecystectomy TONSILLECTOMY 2005 Tonsillectomy Medical History Medical History Date Comments Asthma Asthma Tonsillitis 2007 Tonsillitis Family History Medical History Relation Name Comments ADD / ADHD Brother ADD/ADHD; Other Father Unknown; Other Mother Alive and well; Seizures Mother Seizure disorde r; Relation Name Status Comments Brother Father Mother Alive Social History Tobacco Use Types Packs/Day Years Used Date Smoking Tobacco: Never Smokeless Tobacco: Never Alcohol Use Standard Drinks/Week Comments No 0 (1 standard drink = 0.6 oz pur e alcohol) PHQ-2 Answer Date Recorded PHQ-2 Total Score (If total score is 3 or more points, staff should administer the PHQ-9) 0 03/22/2022 Personal Safety Answer Date Recorded Have you ever been in or are you currently in a harmful physical or emotional relationship or is someone making you feel afraid or unsafe? Denies 06/06/2024 Comments No Sex and Gender Information Value Date Recorded Sex Assigned at Not on file Legal Sex Female 2:11 PM LEATHER TACKER Gender Identity Female 09/26/2020 7:10 AM CDT Sexual Orientation Straight 09/26/2020 7: 10 AM CDT Obstetrics History Last Filed Vital Signs Vital Sign Reading Time Taken Comments Blood Pressure 153/103 06/06/2024 11:39 PM CDT Pulse 90 06/06/2024 11:39 PM CDT Temperature 36.4 C (97.5 F) 06/06/2024 11:39 PM CDT Respiratory Rate 17 06/06/2024 11:39 PM CDT Oxygen Saturation 100% 06/06/2024 11:39 PM CDT Inhaled Oxygen Concentration - - Weight 88.9 kg (196 lb) 06/06/2024 11:39 PM CDT Height 157.5 cm (5' 2) 06/06/2024 11:39 PM CDT Body Mass Index 35.85 06/06/2024 11:39 PM CDT Plan of Treatment Health Maintenance Due Date Last Done Comments Albumin Creatinine Ratio, Urine 1993 Cervical Cancer Screening 1993 Hepatitis C Screening 1993 Dilated Eye Exam 1993 Foot Exam 1993 Lipid Panel 1993 Varicella Vaccines (1 of 2 - 13+ 2-dose series) 2006 Regular Well Visit/Exam 18-64 2011 Pneumococcal vaccine <65 (1 of 2 - PCV) 2012 Hemoglobin A1C 09/19/2022 03/20/2022, 06/05/2021 Depression Screening 03/20/2023 03/20/2022, 03/20/20 22 DTaP/Tdap/Td Vaccine (8 - Td or Tdap) 05/15/2024 05/15/2014, 01/01/2006, 07/23/2005, Additional history exists eGFR 06/06/2025 06/06/2024, 03/02, 03/21/2022, Additional history exists Influenza Vaccine (Season Ended) 2025 01/29/2014, 01/01/2006, 10/24/2004, Additional history exists Hepatitis B Screening Completed 03/20/1994 , 1993, 1993 HPV Vaccines Completed 02/24/2008, 09/01, 06/30/2007 Procedures Procedure Name Priority Date/Time Associated Diagnosis Comments EGFR STAT 06/06/2024 11:53 PM CDT HEMOGLOBIN A1C Routine 03/20/2022 8:07 PM CDT from Last 3 Months or Most Recently Relevant to Health Maintenance Results * eGFR (06/06/2024 11:53 PM CDT) eGFR >90 >=60 mL/min/1. 73 m2 Comment: Interpretive Data Reference Interval Normal >/= 90 mL/min/1.73m2 Mildly decreased* 60 - 89 mL/min/1.73m2 Mildly to moderately decreased 45 - 59 mL/min/1.73m2 Moderately to severely decreased 30 - 44 mL/min/1.73m2 Severely decreased 15 - 29 mL/min/1.73m2 Kidney Failure < 15 mL/min/1.73m2 *Relative to young adult level Estimated glomerular filtration rate is determined by the 2020 CKD-EPI equation recommended by the National Kidney Foundation (A Unifying Approach to GFR Estimation: Recommendations of the NKF-ASK Task Force on Reassessing the Inclusion of Race in Diagnosing Kidney Disease, JASN 2020). The CKD-EPI equation should not be used for patients with unstable renal function and has not been validated in children and those over 70. Current interpretive data was last reviewed 2021. Blood 06/06/2024 11:5 3 PM CDT 06/06/2024 11:55 PM CDT us Cedric Saba MD LAB BLOOD ORDERABLE S Final Result [facility] [address] [facility] Department of Laboratories [place], [place] [id number] * (ABNORMAL) Hemoglobin A1c (03/20/2022 8:07 PM CDT) Hgb A1C 12.0(H) 4.0 - 5.6 % [facility] ([facility]) Estimated Average Glucose 298 mg/dL [facility] ([facility]) Comment: The ADA recommends reporting an estimated Average Glucose (eAG) with all Hemoglobin A1c results using the equation derived from a study of 507 normal and diabetic adults. Minority populations were underrepresented and children were not included. (Diabetes Care 31:4592-8231, 2008). The eAG is not equivalent to a fasting glucose. Blood 03/20/2022 8:07 PM CDT 03/20/2022 10:46 PM CDT us Cate Tracy MD LAB BLOOD ORDERABLES Fin al Result MICHAEL [facility] 1 [facility] Department [place] [address] from Last 3 Months or Most Recently Relevant to Health Maintenance Insurance [facility] [place] [place] [address] [address] Advance Directives For more information, please contact: [phone] * Full Code (Latest Code Status on File) Date Activated Date Inactivated Comments 03/21/2022 12:56 AM 03/22/2022 8:26 PM Care Teams Patient Service Representative Relationship Specialty Start Date End Date Emil Weiner MD PCP - General Family Medicine 03/30/23
--- OUTSIDE RECORDS SUMMARY | 2025-04-28 17:12 | XMS_ITS | Clinical Summary ---
Author Organization [facility] Care Team Providers Care Mechanical Maintenance Technician Name Role Phone Cate Mirza [facility] Primary Care Pro vider Megan Christian MD Unavailable Allergies Active Allergy Reactions Criticality Noted Date Comments Metformin Rash Medium 06/05/2021 Peanut (Diagnostic) Anaphylaxis 05/01/2014 Medications busPIRone (BUSPAR) 5 MG Tablet Take 1 Tablet by mouth in the morning and at bedtime. 60 Tablet 1 10/25/2024 Active simvastatin (ZOCOR) 20 MG Tablet Take 1 Tablet by mouth every evening. 90 Tablet 3 11/12/2024 Active HYDROcodone-ar taminophen (NORCO) 5-325 MG TabletIndicatio ns:Low back pain with left-sided sciatica Take 1 Tablet by mouth every 8 hours as needed for Moderate or more severe pain. 12 Tablet 12/24/2024 Active empagliflozin (Jardiance) 25 MG TabletIndicatio ns:Type 2 diabetes mellitus without complication, without long-term current use of insulin Take 1 Tablet by mouth daily. 90 Tablet 1 01/04/2025 Active sertraline (ZOLOFT) 50 MG Tablet TAKE 1 TABLET BY MOUTH DAILY 30 Tablet 1 02/07/2025 Active Active Problems Problem Noted Date Diagnosed Date Type 2 diabetes mellitus wit hout complication, without long-term current use of insulin 01/04/2025 Encounters Date Type Department Care Team Description 02/07/2025 Refill [facility] - Internal Medicine - [place] [address] [place] [address] Cate Mirza, [facility] Medication Refill from Last 3 Months Immunizations Immunization Administration Dates Next Due DTP-Hib 03/16/1997, 4,1993,07/25,1993 Hepatitis A Vaccine, Pediatric/adolescent, 2 Dose Schedule 06/30/2007,07/23/2005 Hepatitis B Vaccine, Pediatric/adolescent 03/20/1994,1993,1993 Human Papillomavirus Vaccine (HPV), quadrivalent 02/24/2008,09/22/2007,06/30/2007 Influenza Vaccine,unspecifie d Formulation 10/24/2004,10/14/2003 Influenza, Seasonal, Injecta ble, Undefined 01/29/2014 MMR Vaccine 03/16/1997,03/20/1994 Meningococcal Vaccine 11/14/2010 OPV 03/15/1997, 4,03/20/1994,09/26,1993,1993 TD VACCINE 07/23/2005 TDAP Vaccine 06/08/2024,05/15/2014,01/01/2006 Family History Medical History Relation Name Comments Colon Cancer Father Alcohol Abuse Mother Chronic Obstructive Pulmonary Disease Mother Drug Abuse Mother Relation Name Status Comments Father Alive Mother Alive Social History Tobacco Use Types Packs/Day Years Used Date Smoking Tobacco: Never Smokeless Tobacco: Never Tobacco Cessation:Counseling Given: No Alcohol Use Standard Drinks/Week Comments Not Currently 0 (1 standard drink = 0.6 oz pur e alcohol) occasionally SupplyBid Utilities Answer Date Recorded In the past 12 months has [employer], [employer], or water agencyQ threatened to shut off services in your home? No 10/23/2024 Social Connection and Isolat ion Panel [NHANES] Answer Date Recorded In a typical week, how many times do you talk on the phone with family, friends, or neighbors? More than three times a week 10/23/2024 How often do you get togethe r with friends or relatives? Twice a week 10/23/2024 How often do you attend [facility] or advent services? Patient declined 10/23/2024 Do you belong to any clubs o r organizations such as presybeterian groups, unions, fraternal or athletic groups, or school groups? No 10/23/2024 How often do you attend meet ings of the clubs or organizations you belong to? Patient declined 10/23/2024 Are you , , di vorced, , never , or living with a partner? 10/23/2024 AUDIT-C Answer Date Recorded Q1: How often do you have a drink containing alc ohol? Monthly or less 10/23/2024 Q2: How many drinks containi ng alcohol do you have on a typical day when you are drinking? 1 or 2 10/23/2024 Q3: How often do you have si x or more drinks on one occasion? Never 10/23/2024 Overall Financial Resource Strain (CARDIA) Answe r Date Recorded How hard is it for you to pa y for the very basics like food, housing, medical care, and heating? Somewhat hard 10/23/2024 PHQ-2 Answer Date Recorded Total Score - Questions 1-9 19 10/02 [facility] - Occupational Stress Questionnaire Answer Date Recorded Do you feel stress - tense, restless, nervous, or anxious, or unable to sleep at night because your mind is troubled all the time - these days? Very much 10/23/2024 Exercise Vital Sign Answer Date Recorde d On average, how many days pe r week do you engage in moderate to strenuous exercise (like a brisk walk)? 2 days 10/23/2024 On average, how many minutes do you engage in exercise at this level? 30 min 10/23/2024 Hunger Vital Sign Answer Date Recorded Within the past 12 months, y ou worried that your food would run out before you got the money to buy more. Patient declined Within the past 12 months, t he food you bought just didn't last and you didn't have money to get more. Patient declined PRAPARE - Transportation Answer Date Re corded In the past 12 months, has l ack of transportation kept you from medical appointments or from getting medications? No 10/02 In the past 12 months, has l ack of transportation kept you from meetings, work, or from getting things needed for daily living? No 10/23/2024 Housing Stability Vital Sign Answer Wolfgang e Recorded In the last 12 months, was t here a time when you were not able to pay the mortgage or rent on time? No 10/23/2024 In the past 12 months, how m any times have you moved where you were living? 0 10/23/2024 At any time in the past 12 m [facility], were you homeless or living in a care home (including now)? No 10/23/2024 Comments No Sex and Gender Information Value Date Recorded Sex Assigned at Not on file Legal Sex Female 2:01 PM CDT Gender Identity Not on file Sexual Orientation Not on file Last Filed Vital Signs Vital Sign Reading Time Taken Comments Blood Pressure 134/85 01/04/2025 2:31 PM SECTIONAL BELT MOLD ASSEMBLER Pulse 78 01/04/2025 2:31 PM SECTIONAL BELT MOLD ASSEMBLER Temperature 36.5 C (97.7 F) 01/04/2025 2:31 PM SECTIONAL BELT MOLD ASSEMBLER Respiratory Rate 18 01/04/2025 2:31 PM SECTIONAL BELT MOLD ASSEMBLER Oxygen Saturation 98% 01/04/2025 2:31 PM SECTIONAL BELT MOLD ASSEMBLER Inhaled Oxygen Concentration - - Weight 88 kg (194 lb) 01/04/2025 2:31 PM SECTIONAL BELT MOLD ASSEMBLER Height 157.5 cm (5' 2) 12/24/2024 5:06 PM SECTIONAL BELT MOLD ASSEMBLER Body Mass Index 35.48 12/24/2024 5:06 PM SECTIONAL BELT MOLD ASSEMBLER Plan of Treatment Upcoming Encounters Date Type Department Care Team (Late st Contact Info) Description 05/06/2025 8:30 AM CDT Office Visit [facility] - Endocrinology - [place] [address] [place] [address] Megan Christian MD [address] [address] Health Maintenance Due Date Last Done Comments Diabetes: Eye Exam 1993 Hepatitis C Virus (HCV) Screening 1993 Pneumococcal Immunization Combined (1 of 2 - PCV) 2012 Pap Smear 2014 Cervical Cancer Screening (CCS) 2023 HPV/Cotest 2023 SARS-COV-2 Immunization ( season) 2024 Diabetes: Hemoglobin A1c 05/10/2025 11/09/2024, 03/02 Influenza Immunization (Season Ended) 2025 01/29/2014, 10/24/2004, 10/14/2003 Diabetes: Nephropathy Screening 11/09/2025 11/09/2024 Diabetes: Foot Exam 01/04/2026 01/04/2025 DTaP/Tdap/Td Immunization (9 - Td or Tdap) 06/08/2034 06/08/2024, 05/15/2014, 01/01/2006, Additional history exists Respiratory Syncytial Virus (RSV) Immunization (Adult) (1 - 1-dose 75+ series) 2068 Hepatitis B Immunization Completed 994, 1993, 1993 Human Papillomavirus (HPV) Immunization Completed 02/24/2008, 09/22/2007, 06/30/2007 Meningococcal Immunization (ACWY) Completed 11/14/2010 TdaP Immunization Discontinued 06/08/2024, , 01/01/2006 Rotavirus Immunization Aged Out No lo nger eligible based on patient's age to complete this topic Goals Goal Patient Goal Type Associated Problems Recent Progress Patient-Stated? Author do better at handling stress Behavioral Health On track( 024 11:16 AM SECTIONAL BELT MOLD ASSEMBLER) Yes Nenita Thakkar, [employer] Procedures Procedure Name Priority Date/Time Associated Diagnosis Comments CMP (COMPREHENSIVE METABOLIC PANEL) Routine 11/09/2024 8:20 AM SECTIONAL BELT MOLD ASSEMBLER Well adult exam HEMOGLOBIN A1C W/ ESTIMATED GLUCOSE Routine 11/09/2024 8:20 AM SECTIONAL BELT MOLD ASSEMBLER Well adult exam from Last 3 Months or Most Recently Relevant to Health Maintenance Results * (ABNORMAL) HEMOGLOBIN A1C W/ ESTIMATED GLUCOSE (11/09/2024 8:20 AM SECTIONAL BELT MOLD ASSEMBLER) HGB-A1C 6.7(H) 4.0 - 6.0 % 11/09/2024 9:25 AM SECTIONAL BELT MOLD ASSEMBLER [facility] Est Average Glucose 145.6 mg/dL 11/09/2024 9:25 AM SECTIONAL BELT MOLD ASSEMBLER [facility] Blood Venipuncture / Unknown 11/09/2024 8:20 AM SECTIONAL BELT MOLD ASSEMBLER 11/09/2024 8:51 AM SECTIONAL BELT MOLD ASSEMBLER Narrative [facility] - 11/09/2024 9:25 AM SECTIONAL BELT MOLD ASSEMBLER HEMOGLOBIN A1C: DIABETIC PATIENTS: WELL-CONTROLLED: 6.2 - 7.0 INTERMEDIATE WELL-CONTROLLED: 7.0 - 9.0 POORLY-CONTROLLED: >9.0 Cate Mirza PAC CHEMISTRY ORDERAB LES Final Result [facility] [address] [place] [address] * (ABNORMAL) CMP (COMPREHENSIVE METABOLIC PANEL) (11/09/2024 8:20 AM SECTIONAL BELT MOLD ASSEMBLER) SODIUM 140 136 - 145 mmol/L 11/09/2024 9:17 AM [facility] POTASSIUM 4.1 3.5 - 5.1 mmol/L 11/09/2024 9:17 AM [facility] CHLORIDE 107 98 - 107 mmol/L 11/09/2024 9:17 AM [facility] CO2, VENOUS 24 22 - 30 mmol/L 11/09/2024 9:17 AM [facility] ANION GAP 13.1 <18.0 mmol/L 11/09/2024 9:17 AM [facility] GLUCOSE 186(H) 70 - 99 mg/dL 11/09/2024 9:17 AM [facility] BUN 10 5 - 18 mg/dL 11/09/2024 9:17 AM [facility] CREATININE, BLOOD 0.75 0.60 - 1.00 mg/dL 11/09/2024 9:17 AM [facility] BUN/CREATININE RATIO 13 12 - 20 ratio 11/09/2024 9:17 AM [facility] TOTAL PROTEIN 6.9 6.3 - 8.2 g/dL 11/09/2024 9:17 AM [facility] ALBUMIN 4.2 3.5 - 5.0 g/dL 11/09/2024 9:17 AM [facility] A/G RATIO 1.6 1.0 - 2.2 11/09/2024 9:17 AM [facility] CALCIUM 9.4 8.7 - 10.5 mg/dL 11/09/2024 9:17 AM [facility] T BILI 0.6 0.2 - 1.2 mg/dL 11/09/2024 9:17 AM [facility] SGOT (AST) 25 5 - 34 U/L 11/09/2024 9:17 AM [facility] SGPT (ALT) 40 0 - 55 U/L 11/09/2024 9:17 AM [facility] ALKALINE PHOSPHATASE 101 40 - 150 U/L 11/09/2024 9:17 AM [facility] IS THE PATIENT REQUIRED TO BE FASTING? No 11/09/2024 9:17 AM [facility] GFR, ESTIMATED >60 >=60 11/09/2024 9:17 AM [facility] Comment: Creatinine Clearance is the preferred criteria for selecting drug dose adjustments in renally impaired patients. The GFR is provided as additional pertinent clinical information. GFR is reported in mL/min/1.73 sq m. Calculation based on the Chronic Kidney Disease Epidemiology Collaboration (CKD- EPI) equation refit without adjustment for race. GFR, EST. >60 >=60 024 9:17 AM [facility] GFR, EST. NONAFRICAN >60 >=60 11/09/2024 9:17 AM [facility] Blood Venipuncture / Unknown 11/09/2024 8:20 AM SECTIONAL BELT MOLD ASSEMBLER 11/09/2024 8:51 AM SECTIONAL BELT MOLD ASSEMBLER Cate Mirza PAC CHEMISTRY ORDERAB LES Final Result [facility] [place] [address] from Last 3 Months or Most Recently Relevant to Health Maintenance Insurance MEDICAID [employer] Care Teams Mechanical Maintenance Technician Relationship Specialty Start Date End Date Cate Mirza PAC [address] [place] [address] PCP - General Physician Ehs Manager 10/25/24 Megan Christian MD [address] [phone] Consulting Physician Endocrinology 01/04/25
--- OUTSIDE RECORDS SUMMARY | 2025-04-28 17:12 | XMS_ITS | Referral Summary ---
Author Organization [facility] Address [address] [place] [address] Care Team Providers Care Sales Host Name Role Phone Emil Weiner MD Primary [...] adjust sliding scale define abdomen dosing - clinical systems educator - Nutrition Education - patient to [...] medications Assessment & Plan (10/03/2020 3:14 PM HARMONIC ANALYST): Yrs of pc urgency with loose bms and cramping and bloating. Had GB removed yrs ago. No systemic sx/signs. Sounds like ibs-d. Discussed viberzi but will try hi fiber diet first. Recap in 4 weeks. Migraine 02/18/2014 Overview (03/06/2017): MIGRNE UNSP WO NTRC MGRN Immunizations Immunization Administration Dates Next Due Influenza, Trivalent, IM (MDV) 01/29/2014 Social History Tobacco Use Types Packs/Day Years [...] on file Legal Sex Female 2:11 PM HARMONIC ANALYST Gender Identity Female 09/26/2020 7:10 AM CDT Sexual Orientation Straight 09/26/2020 7: 10 AM CDT Last Filed Vital Signs Vital Sign Reading [...] 06/06/2024 11:39 PM CDT Plan of Treatment Not on file Procedures Procedure Name Priority Date/Time Associated Diagnosis [...] LAB BLOOD ORDERABLE S Final Result [facility] [place] [address] * (ABNORMAL) Hemoglobin A1c (03/20/2022 8:07 PM CDT) Hgb A1C 12.0(H) 4.0 - 5.6 % [facility]) Estimated Average Glucose 298 mg/dL [facility] Comment: The ADA recommends reporting an estimated Average Glucose (eAG) with all Hemoglobin A1c results using the equation derived from a study of 507 normal and diabetic adults. Minority populations were underrepresented and children were not included. (Diabetes Care 31:6322-9709, 2008). The eAG is not equivalent to a fasting glucose. Blood 03/20/2022 8:07 PM CDT 03/20/2022 10:46 PM CDT Cate Tracy MD LAB BLOOD ORDERABLES Fin al Result [facility] ([place]) 1 [facility] [place] [address] from Last 3 Months or Most Recently Relevant to Health Maintenance Insurance [facility] [employer] Advance Directives For more information, please contact: [phone] * Full Code (Latest Code Status on File) Date Activated Date Inactivated Comments 03/21/2022 12:56 AM 03/22/2022 8:26 PM Care Teams Sales Host Relationship Specialty Start Date End Date Emil Weiner MD PCP - General Family Medicine 03/30/23
--- OUTSIDE RECORDS SUMMARY | 2025-04-28 17:12 | XMS_ITS | Encounter Summary ---
Author Organization [facility] Address [address] [facility] [address] Phone Care Team Providers Care Executive Marketing Assistant Name Role Phone Provider, Unknown Primary Care Provider Unavaila Cate Canales PAC Primary Care Pro vider Megan Christian MD Unavailable Encounter Details Date Type Department Care Team (Late st Contact Info) Description 05/25/2021 Lab Requisition [facility] Services [address] [place] [address] Rani Blanchard, SOFTWARE DESIGN MANAGER, DEPUTY HEAD [address] [place] [address] Encounter for antibody response examination Social History Tobacco Use Types Packs/Day Years Used Date Smoking Tobacco: Never Smokeless Tobacco: Never Alcohol Use Standard Drinks/Week Comments Yes 0 (1 standard drink = 0.6 oz pur e alcohol) occasionally Comments No Sex and Gender Information Value Date Recorded Sex Assigned at Not on file Legal Sex Female 2:01 PM CDT Gender Identity Not on file Sexual Orientation Not on file documented as of this encounter Plan of Treatment Upcoming Encounters Date Type Department Care Team (Late Contact Info) Description 05/06/2025 8:30 AM CDT Office Visit [facility] [address] [place] [address] Megan Christian MD [address] [address] documented as of this encounter Procedures Procedure Name Priority Date/Time Associated Diagnosis Comments MMRV PANEL Routine 05/25/2021 2:00 PM CDT Encounter for antibody response examination MUMPS IGG Routine 05/25/2021 2:00 PM CDT Encounter for antibody response examination HERPES ZOSTER (VARICELLA) IGG Routine 05/25/2021 2:00 PM CDT Encounter for antibody response examination RUBEOLA (MEASLES) IGG Routine 05/25/2021 2:00 PM CDT Encounter for antibody response examination RUBELLA IMMUNITY IGG Routine 05/25/2021 2:00 PM CDT Encounter for antibody response examination HEPATITIS B SURFACE ANTIBODY (HBSAB) Routine 05/25/2021 2:00 PM CDT Encounter for antibody response examination documented in this encounter Results * (ABNORMAL) HERPES ZOSTER (VARICELLA) IGG (05/25/2021 2:00 PM CDT) VARICELLA ZOSTER IGG 0.8(L) >=1.1 AI 05/25/2021 10:57 PM CDT [facility] Blood Venipuncture / Unknown 05/25/2021 2:00 PM CDT 05/25/2021 3:51 PM CDT Narrative [facility] - 05/25/2021 10:57 PM CDT <= 0.8 Negative. No detectable VZV IgG antibody. 0.9 - 1.0 Equivocal >=1.1 Positive Antibody testing was performed by multiplex flow immunoassay on the Follica platform. us Rani Flores Behsha SOFTWARE DESIGN MANAGER, DEPUTY HEAD IMMUNOLOGY ORDERABL ES Final Result [facility] [address] [place] [address], [place] * RUBEOLA (MEASLES) IGG (05/25/2021 2:00 PM CDT) MEASLES AB IGG 1.9 >=1.1 AI 05/25/2021 10:57 PM CDT [facility] Blood Venipuncture / Unknown 05/25/2021 2:00 PM CDT 05/25/2021 3:51 PM CDT Narrative [facility] - 05/25/2021 10:57 PM CDT <= 0.8 Negative. No detectable Measles IgG antibody. 0.9 - 1.0 Equivocal >=1.1 Positive Antibody testing was performed by multiplex flow immunoassay on the BioPlex platform. us Rani L Behrends SOFTWARE DESIGN MANAGER, DEPUTY HEAD IMMUNOLOGY ORDERABL ES Final Result Performing Organization Address City/[facility]/ZIP Co de Phone Number [facility] [address] [place] [address], [place] * (ABNORMAL) RUBELLA IMMUNITY IGG (05/25/2021 2:00 PM CDT) RUBELLA IMMUNITY Nonimmune( A) Immune, Invalid 05/26/2021 6:09 AM CDT [facility] Blood Venipuncture / Unknown 05/25/2021 2:00 PM CDT 05/25/2021 3:51 PM CDT Narrative [facility] - 05/26/2021 6:09 AM CDT Antibody testing was performed by multiplex flow immunoassay on the BioPlex platform. us Rani L Behrends SOFTWARE DESIGN MANAGER, DEPUTY HEAD CHEMISTRY ORDERABLE S Final Result [facility] [address] [place] [address], [place] * MUMPS IGG (05/25/2021 2:00 PM CDT) Mumps Ab IgG 1.1 >=1.1 AI 05/25/2021 10:57 PM CDT [facility] Blood Venipuncture / Unknown 05/25/2021 2:00 PM CDT 05/25/2021 3:51 PM CDT Narrative [facility] - 05/25/2021 10:57 PM CDT <= 0.8 Negative. No detectable Mumps IgG antibody. 0.9 - 1.0 Equivocal >=1.1 Positive Antibody testing was performed by multiplex flow immunoassay on the Follica platform. us Rani L Behrends SOFTWARE DESIGN MANAGER, DEPUTY HEAD IMMUNOLOGY ORDERABL ES Final Result Performing Organization Address [facility] Co de Phone Number [facility] [address] [place] [address], [place] * HEPATITIS B SURFACE ANTIBODY (HBSAB) (05/25/2021 2:00 PM CDT) HEPATITIS B SURFACE ANTIBODY <8.00 mIU/mL [facility] [id number] 05/25/2021 10:43 PM CDT [facility] Comment:Individual is consid ered not immune to HBV infection. Blood Venipuncture / Unknown 05/25/2021 2:00 PM CDT 05/25/2021 3:50 PM CDT us Rani L Behrends SOFTWARE DESIGN MANAGER, DEPUTY HEAD CHEMISTRY ORDERABLE S Final Result Performing Organization Address [facility] Co de Phone Number [facility] [address] [place] [address], [place] documented in this encounter Visit Diagnoses Diagnosis Encounter for antibody response examination Antibody response examination documented in this encounter Care Teams Executive Marketing Assistant Relationship Specialty Start Date End Date Provider, Unknown UNKNOWN PCP - General 10/30/19 10/24/24 Cate Mirza PAC [address] [place] [address] PCP - General Physician Hand Shaker 10/25/24 Megan Christian MD [address] [place] [address] Consulting Physician Endocrinology 01/04/25 documented as of this encounter
--- OUTSIDE RECORDS SUMMARY | 2025-04-28 17:12 | XMS_ITS | Clinical Summary ---
Author Organization [facility] Address [address] [place] [address] Care Team Providers Care Weigher Alloy Name Role Phone Unknown, Provider Primary Care Provider Unavaila ble Source Comments [facility],non-owned Affiliates and Associated Physician Practices is amultiple site organization consisting of ambulatory clinics and hospital sitesin [place], [place], [place] and [place]. This disclosure is being madepursuant to the Care Everywhere program and may not contain all information available regarding this patient. Last updated 18.[facility] Allergies Active Allergy Reactions Criticality Noted Date Comments Latex 05/01/2014 Metformin Rash Medium 06/05/2021 Peanut-Derived 05/01/2014 Medications * Be aware that medications may not be up to date on this document. Alwaysverify current medications with the patient. SUMAtriptan (IMITREX) 25 MG tablet Take 25 mg by mouth 2 times daily as needed for Migraine. Active gabapentin (Neurontin) 300 MG capsule TAKE 1 CAPSULE BY MOUTH AT BEDTIME FOR 2 DAYS, THEN 1 CAPSULE TWICE DAILY FOR 2 DAYS, THEN 1 CAPSULE THREE TIMES DAILY 100 capsule 02/22/2025 Active Encounters Date Type Department Care Team Description 02/17/2025 Refill [facility] - Orthopedics [address] [place] [address] [place] [address] Terrence Almaguer MD Refill Request from Last 3 Months Immunizations Immunization Administration Dates Next Due TDAP (7yrs+) 05/15/2014 Social History Tobacco Use Types Packs/Day Years Used Date Smoking Tobacco: Never Tobacco Cessation:Counseling Given: Not Answered Alcohol Use Standard Drinks/Week Comments No 0 (1 standard drink = 0.6 oz pur e alcohol) Comments Unknown Sex and Gender Information Value Date Recorded Sex Assigned at Female 01/12/2025 3:35 PM MEMBERSHIP MANAGER Legal Sex Female 7:27 AM MEMBERSHIP MANAGER Gender Identity Female 01/12/2025 3:35 PM MEMBERSHIP MANAGER Sexual Orientation Straight 01/12/2025 3: 35 PM MEMBERSHIP MANAGER Last Filed Vital Signs Vital Sign Reading Time Taken Comments Blood Pressure 92/71 07/24/2014 11:14 PM CDT Pulse 79 07/24/2014 11:14 PM CDT Temperature 36.8 C (98.2 F) 07/24/2014 11:14 PM CDT Respiratory Rate 16 07/24/2014 11:14 PM CDT Oxygen Saturation 100% 07/24/2014 11:14 PM CDT Inhaled Oxygen Concentration - - Weight 89.5 kg (197 lb 6.4 oz) 01/12/2025 8:50 A M MEMBERSHIP MANAGER Height 152.4 cm (5') 07/24/2014 9:22 PM CDT Body Mass Index - - Plan of Treatment Health Maintenance Due Date Last Done Comments PAP SMEAR 1993 HIV SCREENING 2008 HEPATITIS C SCREENING 03/08/2011 HEPATITIS B VACCINE (1 of 3 - 19+ 3-dose series) 2012 DTAP/TDAP/TD VACCINES (2 - T d or Tdap) 05/15/2024 05/15/2014 COVID-19 VACCINE (1 - 2023-2 5 season) 2024 DEPRESSION SCREENING 12/01/2024 INFLUENZA VACCINE (Season Ended) 2025 01/29/2014, 10/24/2004, 10/14/2003 ZOSTER VACCINE (1 of 2) 2043 HIB VACCINE Aged Out No longer eligi ble based on patient's age to complete this topic HPV VACCINE Aged Out No longer eligi ble based on patient's age to complete this topic MENINGOCOCCAL (Group B) VACCINE SHARED DECISION-MAKING Aged Out No longer eligible based on patient's age to complete this topic MENINGOCOCCAL GROUPS A/C/Y/W VACCINE Aged Out No longer eligible b ased on patient's age to complete this topic PNEUMOCOCCAL VACCINE Aged Out No long er eligible based on patient's age to complete this topic Insurance [facility] * Guarantor: ELIAS ESCALANTE Account Type Relation to Patient Date of Phone Billing Address Personal/Family Spouse Care Teams Weigher Alloy Relationship Specialty Start Date End Date Unknown, Provider PCP - General 01/12/25
--- OUTSIDE RECORDS SUMMARY | 2025-04-28 17:12 | XMS_ITS | Encounter Summary ---
Author Organization [facility] Address [address] [place] [address] Phone Care Team Providers Care Advertising Operations Coordinator Name Role Phone Provider, Unknown Primary Care Provider Unavaila Cate Canales PAC Primary Care Pro vider Megan Christian MD Unavailable Encounter Details Date Type Department Care Team (Late Contact Info) Description 01/15/2024 Behavioral Health Patient Survey [facility] [address] [place] [phone] Nenita Thakkar, [facility] [address] [place] [address] Social History Tobacco Use Types Packs/Day Years [...] Description 05/06/2025 8:30 AM CDT Office Visit [facility] [address] [place] [phone] Megan Christian MD [address]2 [facility] [address] [place] [address] documented as of this encounter Goals Goal Patient Goal Type Associated Problems Recent Progress Patient-Stated? Author do better at handling stress Behavioral Health On track( 024 11:16 AM POST DOCTORAL FELLOW) Yes Nenita Thakkar, REGISTERED NURSE OBSTETRICS documented as of this encounter Visit Diagnoses Not on filedocumented in this encounter Care Teams Advertising Operations Coordinator Relationship Specialty Start Date End Date Provider, Unknown UNKNOWN PCP - General 10/30/19 10/24/24 Cate Mirza, [facility] [address] [place] [address] PCP - General Physician Cloth Neutralizer 10/25/24 Megan Christian MD #2 [facility] [address] [place] [address] Consulting Physician Endocrinology 01/04/25 documented as of this encounter
--- OUTSIDE RECORDS SUMMARY | 2025-04-28 17:12 | XMS_ITS ---
Author Organization [facility] Care Team Providers Care Public Stenographer Name Role Phone Cate Mirza [facility] Primary Care Pro vider Megan Christian MD Unavailable [facility] Status:Enrolled (Active) Start date:12/24/2024 Enrollment date:12/24/2024 Related social drivers of health:Social Connections, Financial Resource Strain, Depression, Stress, Physical Activity, Food Insecurity Continued Care and Services Coordination
--- OUTSIDE RECORDS SUMMARY | 2025-04-28 17:12 | XMS_ITS | Continuity of Care Document ---
Author Organization [facility] Address [address] [place] [address] Phone Care Team Providers Care Paper Twister Tender Name Role Phone Juan Pablo NUNEZ, Haresh Unavailable Unavailable Advance Directives Directive Yes / No Effective Date File Name No Information Encounters Encounter Description Practice Location Reason(s) For Visit Diagnoses Date Provider Providers Copied on Encounter [facility], [address], [place], [place], [id number], [place] tel:[phone] [facility] No Information Juan Pablo Hutson. [address] [place] [address], [id number], [place]. tel:[phone] Family History Family Member Type Diagnosis Age At Onset No Information Payers Payer name Insurance type Covered green party ID Authoriza tion(s) No Information Social History Type Description Quantity Date Captured Comments Sex Female Smoking Status No Information Sexual Orientation Straight or heterosexual Chief Complaint And Reason For Visit No Information Reason For Referral Reason For Referral No Information History Of Present Illness Encounter Date Complaint History Of Prese nt Illness No Information Functional Status Date Functional Assessmen t No Information Instructions Date Instruction Additional Infor mation No Information Assessments Type Assessment Date No Information Patient Care Teams Name Effective Dates (start - stop) Status Members No Information
[2025-04-28 17:20] VITALS: BP 136/92; PULSE 101; RESP 20; TEMP 36.7; O2SAT 100
--- NOTE | 2025-04-28 18:12 | ED.FEMALEGU ---
HPI - Female Genitourinary General Chief complaint: Vaginal Bleeding Stated complaint: heavy vaginal bleeding x 2 months Time Seen by Provider: 04/28/25 18:12 Focused HPI: This is a 30 year old female that presents to the ER for abnormal uterine bleeding. Reports she has been bleeding constantly for 2 months. Reports she is on control prescribed by Dr. Francis which is not slowing the bleeding. Reports pelvic cramping. GENERAL: Well-appearing, well-nourished, and in no acute distress. HEAD: Normocephalic, atraumatic. CHEST: Clear to auscultation. ?No respiratory distress. HEART: Regular rate and rhythm.? NEURO: ?Alert and oriented x3. Patient screened in triage and initial orders placed.? ?Additional care and disposition to be based upon?diagnostic testing and treatment. Related Data Home Medications ?Medication ?Instructions ?Recorded ?Confirmed ?Last Taken ?Type escitalopram oxalate 10 mg tablet 10 mg PO DAILY 06/04/22 12/29/23 Unknown History dulaglutide 0.75 mg/0.5 mL See Rx Instructions .Route .COMPLEX 12/29/23 12/29/23 Unknown History subcutaneous pen injector (Trulicity) ondansetron 4 mg disintegrating 4 mg PO Q8H PRN Nausea 12/29/23 12/29/23 Unknown History tablet cetirizine 10 mg tablet mg 03/04/24 Unknown History empagliflozin 25 mg tablet mg 03/04/24 Unknown History (Jardiance) norethindrone 1 mg-ethinyl tablet 03/04/24 Unknown History estradiol 20 mcg (21)-iron 75 mg (7) tablet (Blisovi Fe 12/20 (28)) sitagliptin phosphate 100 mg mg 03/04/24 Unknown History tablet (Januvia) Allergies Allergy/AdvReac Type Severity Reaction Status Date / Time metformin Allergy Hives Verified 03/04/24 17:18 peanut Allergy Anaphylaxis Verified 03/04/24 17:18 PMF Past Medical History Medical History Ankle fracture, right Celiac disease Diabetes Foot fracture, right History of depression Surgical History Surgical History History of appendectomy History of cholecystectomy History of tonsillectomy Social History Social History Smoking status: Never smoker Alcohol intake: current Drinks per week: 1 Substance use: never Substance use type: does not use Living arrangements: with family Gender identity (if verbalized by the patient): Female Spiritual care concerns: No Course Vital Signs Vital signs: Vital Signs Temperature 98.1 F 04/28/25 17:20 Pulse Rate 101 H 04/28/25 17:20 Respiratory Rate 20 04/28/25 17:20 Blood Pressure 136/92 H 04/28/25 17:20 Pulse Oximetry 100 04/28/25 17:20 Oxygen Delivery Room Air 04/28/25 17:20 Temperature 98.1 F 04/28/25 20:18 Pulse Rate 99 04/28/25 20:18 Respiratory Rate 16 04/28/25 20:18 Blood Pressure 143/101 H 04/28/25 20:18 Pulse Oximetry 100 04/28/25 20:18 Oxygen Delivery Room Air 04/28/25 17:20 MDM - Female Genitourinary MDM Narrative Medical decision making narrative: Patient left after medical screening exam and before any further evaluation or management Discharge Plan Discharge Clinical Impression: Dysfunctional uterine bleeding Patient Disposition: Elopement After Seen by Prov Patient Language: Norwegian Prescriptions: No Action escitalopram oxalate 10 mg tablet 10 mg PO DAILY ondansetron 4 mg tablet,disintegrating 4 mg PO Q8H PRN (Reason: Nausea) Trulicity 0.75 mg/0.5 mL pen injector See Rx Instructions .ROUTE .COMPLEX Rx Instructions: as prescribed omeprazole 40 mg capsule,delayed release(DR/EC) 40 mg PO DAILY Qty: 30 0RF cetirizine 10 mg tablet norethindrone-e.estradiol-iron [Blisovi Fe 12/20 (28)] 1 mg-20 mcg (21)/75 mg (7) tablet Januvia 100 mg tablet Jardiance 25 mg tablet baclofen 10 mg tablet 10 mg PO TID Qty: 12 0RF Rx Instructions: 0.5 to 1 tablet 2-3 times per day PRN for pain Follow-up/Referrals: PHYSICIAN NOT ON STAFF,NONSTAFF [Primary Care Provider] -
[2025-04-28 20:18] VITALS: BP 143/101; PULSE 99; RESP 16; TEMP 36.7; O2SAT 100
--- OUTSIDE RECORDS SUMMARY | 2025-04-28 21:53 | XMS_ITS | Clinical Summary ---
Author Organization [facility] Care Team Providers Care Business Development Agent Name Role Phone Cate Mirza [facility] Primary Care Pro vider Megan Christian MD [...] Internal Medicine - [facility] [address] [place] [address] Cate Mirza, [facility] Medication Refill from Last 3 Months Immunizations [...] = 0.6 oz pur e alcohol) occasionally Dr Sears [facility] [employer] Utilities Answer Date Recorded In the past 12 months has [employer], [employer], or water [employer] threatened to shut off services in your [...] week 10/23/2024 How often do you attend [facility] or [facility]ze services? Patient declined 10/23/2024 Do you belong to any clubs o r organizations such as mandaen groups, unions, fraternal or athletic groups, or [...] Total Score - Questions 1-9 19 10/02 [facility] of Occupat ional [facility] - Occupational Stress Questionnaire Answer [...] any time in the past 12 m [facility], were you homeless or living in a detention (including now)? No 10/23/2024 Comments No Sex and Gender Information Value Date Recorded Sex Assigned at Not on file Legal Sex Female 2:01 PM CDT Gender Identity Not on file Sexual Orientation Not on file Last Filed Vital Signs Vital Sign Reading Time Taken Comments Blood Pressure 134/85 01/04/2025 2:31 PM DRILL SERGEANT Pulse 78 01/04/2025 2:31 PM DRILL SERGEANT Temperature 36.5 C (97.7 F) 01/04/2025 2:31 PM DRILL SERGEANT Respiratory Rate 18 01/04/2025 2:31 PM DRILL SERGEANT Oxygen Saturation 98% 01/04/2025 2:31 PM DRILL SERGEANT Inhaled Oxygen Concentration - - Weight 88 kg (194 lb) 01/04/2025 2:31 PM DRILL SERGEANT Height 157.5 cm (5' 2) 12/24/2024 5:06 PM DRILL SERGEANT Body Mass Index 35.48 12/24/2024 5:06 PM DRILL SERGEANT Plan of Treatment Upcoming Encounters Date Type Department Care Team (Late st Contact Info) Description 05/06/2025 8:30 AM CDT Office Visit [facility] - [place] [address] [place] [address] Megan Christian MD [address] [address] Health Maintenance Due Date Last Done Comments [...] Behavioral Health On track( 024 11:16 AM DRILL SERGEANT) Yes Nenita Thakkar, MEMBER OF THE LEGISLATIVE COUNCIL Procedures Procedure Name Priority Date/Time Associated Diagnosis Comments CMP (COMPREHENSIVE METABOLIC PANEL) Routine 11/09/2024 8:20 AM DRILL SERGEANT Well adult exam HEMOGLOBIN A1C W/ ESTIMATED GLUCOSE Routine 11/09/2024 8:20 AM DRILL SERGEANT Well adult exam from Last 3 Months or Most Recently Relevant to Health Maintenance Results * (ABNORMAL) HEMOGLOBIN A1C W/ ESTIMATED GLUCOSE (11/09/2024 8:20 AM DRILL SERGEANT) HGB-A1C 6.7(H) 4.0 - 6.0 % 11/09/2024 9:25 AM DRILL SERGEANT [facility] Est Average Glucose 145.6 mg/dL 11/09/2024 9:25 AM DRILL SERGEANT [facility] Blood Venipuncture / Unknown 11/09/2024 8:20 AM DRILL SERGEANT 11/09/2024 8:51 AM DRILL SERGEANT N[address]ative [facility] - 11/09/2024 9:25 AM DRILL SERGEANT HEMOGLOBIN A1C: DIABETIC PATIENTS: WELL-CONTROLLED: 6.2 - 7.0 INTERMEDIATE WELL-CONTROLLED: 7.0 - 9.0 POORLY-CONTROLLED: >9.0 Cate Mirza PAC CHEMISTRY ORDERAB LES Final Result [facility] [address] [place] [address] * (ABNORMAL) CMP (COMPREHENSIVE METABOLIC PANEL) (11/09/2024 8:20 AM DRILL SERGEANT) SODIUM 140 136 - 145 mmol/L 11/09/2024 9:17 AM [facility] POTASSIUM 4.1 3.5 - 5.1 mmol/L 11/09/2024 9:17 AM [facility] CHLORIDE 107 98 - 107 mmol/L 11/09/2024 9:17 AM [facility] CO2, VENOUS 24 22 - 30 mmol/L 11/09/2024 9:17 AM [facility] ANION GAP 13.1 <18.0 mmol/L 11/09/2024 9:17 AM [facility] GLUCOSE 186(H) 70 - 99 mg/dL 11/09/2024 9:17 AM [facility] BUN 10 5 - 18 mg/dL 11/09/2024 9:17 AM [facility] CREATININE, BLOOD 0.75 0.60 - 1.00 mg/dL 11/09/2024 9:17 AM [facility] BUN/CREATININE RATIO 13 12 - 20 ratio 11/09/2024 9:17 AM [facility] TOTAL PROTEIN 6.9 6.3 - 8.2 g/dL 11/09/2024 9:17 AM [facility] ALBUMIN 4.2 3.5 - 5.0 g/dL 11/09/2024 9:17 AM [facility] A/G RATIO 1.6 1.0 - 2.2 11/09/2024 9:17 AM [facility] CALCIUM 9.4 8.7 - 10.5 mg/dL 11/09/2024 9:17 AM [facility] T BILI 0.6 0.2 - 1.2 mg/dL 11/09/2024 9:17 AM [facility] SGOT (AST) 25 5 - 34 U/L 11/09/2024 9:17 AM [facility] SGPT (ALT) 40 0 - 55 U/L 11/09/2024 9:17 AM [facility] ALKALINE PHOSPHATASE 101 40 - 150 U/L 11/09/2024 9:17 AM [facility] IS THE PATIENT REQUIRED TO BE FASTING? No 11/09/2024 9:17 AM [facility] GFR, ESTIMATED >60 >=60 11/09/2024 9:17 AM [facility] Comment: Creatinine Clearance is the preferred criteria for selecting drug dose adjustments in renally impaired patients. The GFR is provided as additional pertinent clinical information. GFR is reported in mL/min/1.73 sq m. Calculation based on the Chronic Kidney Disease Epidemiology Collaboration (CKD- EPI) equation refit without adjustment for race. GFR, EST. >60 >=60 024 9:17 AM [facility] GFR, EST. NONAFRICAN >60 >=60 11/09/2024 9:17 AM [facility] Blood Venipuncture / Unknown 11/09/2024 8:20 AM DRILL SERGEANT 11/09/2024 8:51 AM DRILL SERGEANT Cate Mirza PAC CHEMISTRY ORDERAB LES Final Result [facility] [address] [place] [address] from Last 3 Months or Most Recently Relevant to Health Maintenance Insurance MEDICAID [employer] Care Teams Business Development Agent Relationship Specialty Start Date End Date Cate Mirza PAC [address] [place] [address] PCP - General Physician Noodle Press Operator 10/25/24 Megan Christian MD [address] [phone] Consulting Physician Endocrinology 01/04/25
--- OUTSIDE RECORDS SUMMARY | 2025-04-28 21:53 | XMS_ITS | Encounter Summary ---
Author Organization [facility] Address [address] [place] [address] Care Team Providers Care Pallet Assembler Name Role Phone Emil Weiner MD Primary Care Provider + Reason for Visit * Reason Comments Vaginal Bleeding Encounter Details Date Type Department Care Team ([facility] st Contact Info) Description 04/28/2025 9:04 PM CDT Emergency [facility] Emergency Department [address] [place] [address] Social History Tobacco Use Types Packs/Day Years [...] making you feel afraid or unsafe? Denies 04/28/2025 Comments No Sex and Gender Information Value Date Recorded Sex Assigned at Not on file Legal Sex Female 2:11 PM FOOD CHECKERS AND CASHIERS SUPERVISOR Gender Identity Female 09/26/2020 7:10 AM CDT Sexual Orientation Straight 09/26/2020 7: 10 AM CDT documented as of this encounter Last Filed Vital Signs Vital Sign Reading Time Taken Comments Blood Pressure 171/115 04/28/2025 9:09 PM CDT Pulse 121 04/28/2025 9:09 PM CDT Temperature 36.5 C (97.7 F) 04/28/2025 9:09 PM CDT Respiratory Rate 20 04/28/2025 9:09 PM CDT Oxygen Saturation 100% 04/28/2025 9:09 PM CDT Inhaled Oxygen Concentration - - Weight 86.2 kg (190 lb) 04/28/2025 9:09 PM CDT Height 157.5 cm (5' 2) 04/28/2025 9:09 PM CDT Body Mass Index 34.75 04/28/2025 9:09 PM CDT documented in this encounter ED Notes * Eileen Shelton RN - 04/28/2025 9:07 PM CDT Menstrual bleeding x 2 months. Doctor started her on control pills 5 days ago to try to control it, pt states it has only made it worse. Pt states she is bleeding through her pads in an hour. documented in this encounter Plan of Treatment Pending Results Name Type Priority Associated Diagnoses Date /Time Comprehensive metabolic panel Lab STAT 04/28/2025 9:18 PM CDT Scheduled Orders Name Type Priority Associated Diagnoses Order Schedule Comprehensive metabolic panel Lab STAT STAT for 1 Occurrences starting 04/28/2025 until 04/28/2025 POCT hCG, urine Point of Care Testing Routine STAT for 1 Occurrences starting 04/28/2025 until 04/28/2025 documented as of this encounter Procedures Procedure Name Priority Date/Time Associated Diagnosis Comments DIFFERENTIAL AUTO STAT 04/28/2025 9:1 8 PM CDT CBC WITH AUTO DIFFERENTIAL STAT 04/28/2025 9:18 PM CDT documented in this encounter Results * (ABNORMAL) Differential, auto (04/28/2025 9:18 PM CDT) Neutrophil abs 6.32 1.50 - 6.50 K/cumm Imm gran abs 0.09 0.00 - 0.10 K/cumm [facility] Lymphocyte abs 3.97(H) 0.80 - 3.30 K/cumm [facility] Monocyte abs 0.52 0.20 - 0.80 K/cumm [facility] Eosinophil abs 0.17 0.00 - 0.50 K/cumm [facility] Basophil abs 0.09 0.00 - 0.10 K/cumm [facility] Neutrophil pct 56.6 % [facility] Comment: Interpretive Data Percent cell count reference ranges are not reported, since discordance with absolute values may lead to misinterpretation of CBC data. Current Interpretive Data was last revised on 2018. Imm gran pct 0.8 % [facility] Comment: Interpretive Data Percent cell count reference ranges are not reported, since discordance with absolute values may lead to misinterpretation of CBC data. Current Interpretive Data was last revised on 2018. Lymphocyte pct 35.6 % [facility] Comment: Interpretive Data Percent cell count reference ranges are not reported, since discordance with absolute values may lead to misinterpretation of CBC data. Current Interpretive Data was last revised on 2018. Monocyte pct 4.7 % [facility] Comment: Interpretive Data Percent cell count reference ranges are not reported, since discordance with absolute values may lead to misinterpretation of CBC data. Current Interpretive Data was last revised on 2018. Eosinophil pct 1.5 % [facility] Comment: Interpretive Data Percent cell count reference ranges are not reported, since discordance with absolute values may lead to misinterpretation of CBC data. Current Interpretive Data was last revised on 2018. Basophil pct 0.8 % [facility] Comment: Interpretive Data Percent cell count reference ranges are not reported, since discordance with absolute values may lead to misinterpretation of CBC data. Current Interpretive Data was last revised on 2018. Blood 04/28/2025 9:18 PM CDT 04/28/2025 9:27 PM CDT Destiny Dhaliwal MD LAB BLOOD ORDERABLES F inal Result [facility] [id number] [place] [address] * (ABNORMAL) CBC with auto differential (04/28/2025 9:18 PM CDT) WBC 11.16(H) 3.80 - 9.90 K/cumm Hgb 14.5 11.9 - 15.5 g/dL [facility] Hct 44.7 35.6 - 45.5 % [facility] Plt 295 150 - 400 K/cumm [facility] MPV 12.5(H) 9.1 - 12.[address] [facility] RBC 4.68 3.90 - 5.20 M/cumm [facility] MCV 95.5 81.3 - 96.[address] [facility] MCH 31.0 27.1 - 33.3 pg [facility] MCHC 32.4 32.3 - 35.7 g/dL [facility] RDW CV 12.1 11.1 - 14.9 % [facility] RDW SD 41.6 35.7 - 48.[address] [facility] NRBC abs 0.00 0.00 - 0.01 K/cumm [facility] Blood Venous blood specimen / Unknown 04/28/2025 9:18 PM CDT 04/28/2025 9:27 PM CDT Destiny Dhaliwal MD LAB BLOOD ORDERABLES F inal Result [facility] [address] [place] [address] documented in this encounter Visit Diagnoses Not on filedocumented in this encounter Orders Nursing Count Last Ordered Date First Orde red Date NURSING COMMUNICATION 1 04/28/2025 IV Count Last Ordered Date First Orde red Date SALINE LOCK IV 1 04/28/2025 documented in this encounter Care Teams Pallet Assembler Relationship Specialty Start Date End Date Emil Weiner MD PCP - General Family Medicine 03/30/23 documented as of this encounter
--- OUTSIDE RECORDS SUMMARY | 2025-04-28 21:53 | XMS_ITS | Clinical Summary ---
Author Organization [facility] [employer] Address [address] [place] [address] Care Team Providers Care Roof Shingler Name Role Phone Unknown, Provider Primary Care Provider Unavaila ble Source Comments [facility] [employer]non-owned Affiliates and Associated Physician Practices is amultiple site organization consisting of ambulatory clinics and hospital sitesin [place], [place], [place] and [place]. This disclosure is being madepursuant to the Care Everywhere program and may not contain all information available regarding this patient. Last updated 18.[facility] [employer] Allergies Active Allergy Reactions Criticality Noted Date [...] 02/17/2025 Refill [facility] [address] [place] [address] [place] [address] Terrence Almaguer MD Refill Request [...] Sex Assigned at Female 01/12/2025 3:35 PM QUALITY COMPLIANCE CONSULTANT Legal Sex Female 7:27 AM QUALITY COMPLIANCE CONSULTANT Gender Identity Female 01/12/2025 3:35 PM QUALITY COMPLIANCE CONSULTANT Sexual Orientation Straight 01/12/2025 3: 35 PM QUALITY COMPLIANCE CONSULTANT Last Filed Vital Signs Vital Sign Reading Time Taken Comments Blood Pressure 92/71 07/24/2014 11:14 PM CDT Pulse 79 07/24/2014 11:14 PM CDT Temperature 36.8 C (98.2 F) 07/24/2014 11:14 PM CDT Respiratory Rate 16 07/24/2014 11:14 PM CDT Oxygen Saturation 100% 07/24/2014 11:14 PM CDT Inhaled Oxygen Concentration - - Weight 89.5 kg (197 lb 6.4 oz) 01/12/2025 8:50 A M QUALITY COMPLIANCE CONSULTANT Height 152.4 cm (5') 07/24/2014 9:22 PM [...] patient's age to complete this topic Insurance [facility] * Guarantor: ELIAS ESCALANTE Account Type Relation to Patient Date of Phone Billing Address Personal/Family Spouse Care Teams Roof Shingler Relationship Specialty Start Date End Date Unknown, Provider PCP - General 01/12/25
--- OUTSIDE RECORDS SUMMARY | 2025-04-28 21:54 | XMS_ITS | Encounter Summary ---
Author Organization [facility] Address [address] [place] [address] Phone Care Team Providers Care Alterations Sewer Name Role Phone Provider, Unknown Primary Care Provider Unavaila Cate Canales PAC Primary Care Pro vider Megan Christian MD Unavailable Encounter Details Date Type Department Care Team (Late Contact Info) Description 01/15/2024 Behavioral Health [facility] [address] [place] [phone] Nenita Thakkar, [facility] [address] [place] [address] Social History Tobacco Use Types Packs/Day Years [...] CDT Office Visit [facility] [address] [place] [phone] Megan Christian MD [address]2 [facility] [address] [place] [address] documented as of this encounter Goals Goal Patient Goal Type Associated Problems Recent Progress Patient-Stated? Author do better at handling stress Behavioral Health On track( 024 11:16 AM SHOP WELDER) Yes Nenita Thakkar, FIREWORKS ASSEMBLER documented as of this encounter Visit Diagnoses Not on filedocumented in this encounter Care Teams Alterations Sewer Relationship Specialty Start Date End Date Provider, Unknown UNKNOWN PCP - General 10/30/19 10/24/24 Cate Mirza, [facility] [address] [place] [address] PCP - General Physician Salesperson Burial Plots 10/25/24 Megan Christian MD [address]2 [facility] [address] [place] [address] Consulting Physician Endocrinology 01/04/25 documented as of this encounter
--- OUTSIDE RECORDS SUMMARY | 2025-04-28 21:54 | XMS_ITS | Continuity of Care Document ---
Author Organization [facility] Address [address] [place] [address] Phone Care Team Providers Care Wardrobe Specialist Name Role Phone Juan Pablo NUNEZ, Haresh Unavailable Unavailable Advance Directives Directive Yes / No Effective Date File Name No Information Encounters Encounter Description Practice Location Reason(s) For Visit Diagnoses Date Provider Providers Copied on Encounter [facility], [address], [place], [place], [id number], [place] tel:[phone] [facility] No Information Juan Pablo Hutson. [address] [place] [address], [id number], [place]. tel:[phone] Family History Family Member Type Diagnosis Age At Onset No Information Payers Payer name Insurance type Covered republican ID Authoriza tion(s) No Information Social History [...]
--- OUTSIDE RECORDS SUMMARY | 2025-04-28 21:54 | XMS_ITS | Clinical Summary ---
Author Organization [facility] Address 1 [place] [address] Care Team Providers Care Transitional Studies Instructor Name Role Phone Emil Weiner MD Primary [...] adjust sliding scale define abdomen dosing - hospital educator - Nutrition Education - patient to [...] medications Assessment & Plan (10/03/2020 3:14 PM PARAPLANNER): Yrs of pc urgency with loose bms and cramping and bloating. Had GB removed yrs ago. No systemic sx/signs. Sounds like ibs-d. Discussed viberzi but will try hi fiber diet first. Recap in 4 weeks. Migraine 02/18/2014 Overview (03/06/2017): MIGRNE UNSP WO NTRC MGRN Encounters Date Type Department Care Team Description 04/28/2025 9:04 PM CDT Emergency [facility] Emergency Department [id number] [place] [address] from Last 3 Months Immunizations Immunization Administration Dates Next Due Influenza, [...] on file Legal Sex Female 2:11 PM PARAPLANNER Gender Identity Female 09/26/2020 7:10 AM CDT [...] Mass Index 34.75 04/28/2025 9:09 PM CDT Plan of Treatment Health Maintenance [...] 06/05/2021 Depression Screening 03/20/2023 03/20/2022, 03/20/20 22 eGFR 06/06/2025 06/06/2024, 03/02, 03/21/2022, Additional history exists Influenza Vaccine (Season Ended) 2025 01/29/2014, 01/01/2006, 10/24/2004, Additional history exists DTaP/Tdap/Td Vaccine (9 - Td or Tdap) 06/08/2034 06/08/2024, 05/15/2014, 01/01/2006, Additional history exists Hepatitis B Screening Completed 03/20/1994 , 1993, 1993 HPV Vaccines Completed 02/24/2008, 09/01, 06/30/2007 Procedures Procedure Name Priority Date/Time Associated Diagnosis Comments DIFFERENTIAL AUTO STAT 04/28/2025 9:1 8 PM CDT CBC WITH AUTO DIFFERENTIAL STAT 04/28/2025 9:18 PM CDT EGFR STAT 06/06/2024 11:53 PM CDT HEMOGLOBIN A1C Routine 03/20/2022 8:07 PM CDT from Last 3 Months or Most Recently Relevant to Health Maintenance Results * (ABNORMAL) Differential, auto (04/28/2025 9:18 PM CDT) Neutrophil abs 6.32 1.50 - 6.50 K/cumm Imm gran abs 0.09 0.00 - 0.10 K/cumm [facility] Lymphocyte abs 3.97(H) 0.80 - 3.30 K/cumm [facility] Monocyte abs 0.52 0.20 - 0.80 K/cumm [facility] Eosinophil abs 0.17 0.00 - 0.50 K/cumm [facility] CH Basophil abs 0.09 0.00 - 0.10 K/cumm [facility] Neutrophil pct 56.6 % [facility] Comment: Interpretive Data Percent cell count reference ranges are not reported, since discordance with absolute values may lead to misinterpretation of CBC data. Current Interpretive Data was last revised on 2018. Imm gran pct 0.8 % [facility] Comment: Interpretive Data Percent cell count reference ranges are not reported, since discordance with absolute values may lead to misinterpretation of CBC data. Current Interpretive Data was last revised on 2018. Lymphocyte pct 35.6 % [facility] Comment: Interpretive Data Percent cell count reference ranges are not reported, since discordance with absolute values may lead to misinterpretation of CBC data. Current Interpretive Data was last revised on 2018. Monocyte pct 4.7 % [facility] Comment: Interpretive Data Percent cell count reference ranges are not reported, since discordance with absolute values may lead to misinterpretation of CBC data. Current Interpretive Data was last revised on 2018. Eosinophil pct 1.5 % [facility] Comment: Interpretive Data Percent cell count reference ranges are not reported, since discordance with absolute values may lead to misinterpretation of CBC data. Current Interpretive Data was last revised on 2018. Basophil pct 0.8 % [facility] Comment: Interpretive Data Percent cell count reference ranges are not reported, since discordance with absolute values may lead to misinterpretation of CBC data. Current Interpretive Data was last revised on 2018. Blood 04/28/2025 9:18 PM CDT 04/28/2025 9:27 PM CDT us Destiny Dhaliwal MD LAB BLOOD ORDERABLES F inal Result [facility] [address] [place] [address] * (ABNORMAL) CBC with auto differential (04/28/2025 9:18 PM CDT) WBC 11.16(H) 3.80 - 9.90 K/cumm Hgb 14.5 11.9 - 15.5 g/dL [facility] Hct 44.7 35.6 - 45.5 % [facility] Plt 295 150 - 400 K/cumm [facility] MPV 12.5(H) 9.1 - 12.3 fL [facility] RBC 4.68 3.90 - 5.20 M/cumm [facility] MCV 95.5 81.3 - 96.4 fL [facility] MCH 31.0 27.1 - 33.3 pg [facility] MCHC 32.4 32.3 - 35.7 g/dL [facility] RDW CV 12.1 11.1 - 14.9 % [facility] RDW SD 41.6 35.7 - 48.1 fL [facility] NRBC abs 0.00 0.00 - 0.01 K/cumm [facility] Blood Venous blood specimen / Unknown 04/28/2025 9:18 PM CDT 04/28/2025 9:27 PM CDT us Destiny Dhaliwal MD LAB BLOOD ORDERABLES F inal Result [facility] [address] [place] [address] * eGFR (06/06/2024 11:53 PM CDT) eGFR [...] LAB BLOOD ORDERABLE S Final Result [facility] (JAZ) 1 [facility] Department [place] [address] * (ABNORMAL) Hemoglobin A1c (03/20/2022 8:07 PM CDT) Hgb A1C 12.0(H) 4.0 - 5.6 % [facility] (JAZ) Estimated Average Glucose 298 mg/dL [facility] (JAZ) Comment: The ADA recommends reporting an estimated Average Glucose (eAG) with all Hemoglobin A1c results using the equation derived from a study of 507 normal and diabetic adults. Minority populations were underrepresented and children were not included. (Diabetes Care 31:5358-6149, 2008). The eAG is not equivalent to a fasting glucose. Blood 03/20/2022 8:07 PM CDT 03/20/2022 10:46 PM CDT us Cate Tracy MD LAB BLOOD ORDERABLES Fin al Result [facility] ([place]) 1 [facility] Department [place] [address] from Last 3 Months or Most Recently Relevant to Health Maintenance Insurance [facility] Advance Directives For more information, please contact: [phone] * Full Code (Latest Code Status on File) Date Activated Date Inactivated Comments 03/21/2022 12:56 AM 03/22/2022 8:26 PM Care Teams Transitional Studies Instructor Relationship Specialty Start Date End Date Emil Weiner MD PCP - General Family Medicine 03/30/23
--- OUTSIDE RECORDS SUMMARY | 2025-04-28 21:54 | XMS_ITS | Encounter Summary ---
Author Organization [facility] Address [address] [facility] [place] [address] Phone Care Team Providers Care Fiberglass Container Winding Operator Name Role Phone Provider, Unknown Primary Care Provider Unavaila Cate Canales PAC Primary Care Pro vider Megan Christian MD Unavailable Encounter Details Date Type Department Care Team (Late st Contact Info) Description 05/25/2021 Lab Requisition [facility] Laboratory Services [address] [place] [address] Rani Blanchard, SOLE POLISHER, TANNING CONSULTANT [address] [place] [address] Encounter for antibody response examination [...] Description 05/06/2025 8:30 AM CDT Office Visit [facility] [address] [place] [address] Megan Christian MD [id number] [address] documented as of this encounter [...] 0.8(L) >=1.1 AI 05/25/2021 10:57 PM CDT [facility] Blood Venipuncture / Unknown 05/25/2021 2:00 PM CDT 05/25/2021 3:51 PM CDT Narrative [facility] - 05/25/2021 10:57 PM CDT <= 0.8 Negative. No detectable VZV IgG antibody. 0.9 - 1.0 Equivocal >=1.1 Positive Antibody testing was performed by multiplex flow immunoassay on the [employer] platform. us Rani Flores Behsha SOLE POLISHER, TANNING CONSULTANT IMMUNOLOGY ORDERABL ES Final Result [facility] [address] [place] [address], [place] * RUBEOLA (MEASLES) IGG (05/25/2021 2:00 PM CDT) MEASLES AB IGG 1.9 >=1.1 AI 05/25/2021 10:57 PM CDT [facility] Blood Venipuncture / Unknown 05/25/2021 2:00 PM CDT 05/25/2021 3:51 PM CDT Narrative [facility] - 05/25/2021 10:57 PM CDT <= 0.8 Negative. No detectable Measles IgG antibody. 0.9 - 1.0 Equivocal >=1.1 Positive Antibody testing was performed by multiplex flow immunoassay on the [employer] platform. us Rani L Behrends SOLE POLISHER, TANNING CONSULTANT IMMUNOLOGY ORDERABL ES Final Result Performing Organization Address City/[facility]/ZIP Co de Phone Number [facility] [address] [place] [address], [place] * (ABNORMAL) RUBELLA IMMUNITY IGG (05/25/2021 2:00 PM CDT) [facility]LLA IMMUNITY Nonimmune( A) Immune, Invalid 05/26/2021 6:09 AM CDT [facility] Blood Venipuncture / Unknown 05/25/2021 2:00 PM CDT 05/25/2021 3:51 PM CDT Narrative [facility] - 05/26/2021 6:09 AM CDT Antibody testing was performed by multiplex flow immunoassay on the BioPlex platform. us Rani L Behrends SOLE POLISHER, TANNING CONSULTANT CHEMISTRY ORDERABLE S Final Result [facility] [address] [place] [address], [place] * MUMPS IGG (05/25/2021 2:00 PM CDT) Mumps Ab IgG 1.1 >=1.1 AI 05/25/2021 10:57 PM CDT [facility] Blood Venipuncture / Unknown 05/25/2021 2:00 PM CDT 05/25/2021 3:51 PM CDT Narrative [facility] - 05/25/2021 10:57 PM CDT <= 0.8 Negative. No detectable Mumps IgG antibody. 0.9 - 1.0 Equivocal >=1.1 Positive Antibody testing was performed by multiplex flow immunoassay on the [employer] platform. us Rani L Behrends SOLE POLISHER, TANNING CONSULTANT IMMUNOLOGY ORDERABL ES Final Result Performing Organization Address [facility] Co de Phone Number [facility] [address] [place] [address], [place] * HEPATITIS B SURFACE ANTIBODY (HBSAB) (05/25/2021 2:00 PM CDT) HEPATITIS B SURFACE ANTIBODY <8.00 mIU/mL [facility] ARCH [id number] B 05/25/2021 10:43 PM CDT [facility] Comment:Individual is consid ered not immune to HBV infection. Blood Venipuncture / Unknown 05/25/2021 2:00 PM CDT 05/25/2021 3:50 PM CDT us Rani L Behrends SOLE POLISHER, TANNING CONSULTANT CHEMISTRY ORDERABLE S Final Result Performing Organization Address [facility] Co de Phone Number [facility] [address] [place] [address], [place] documented in this encounter Visit Diagnoses Diagnosis Encounter for antibody response examination Antibody response examination documented in this encounter Care Teams Fiberglass Container Winding Operator Relationship Specialty Start Date End Date Provider, Unknown UNKNOWN PCP - General 10/30/19 10/24/24 Cate Mirza PAC [address] [place] [address] PCP - General Physician Airport Screener 10/25/24 Megan Christian MD [address] [place] [address] Consulting Physician Endocrinology 01/04/25 documented as of this encounter
--- OUTSIDE RECORDS SUMMARY | 2025-04-28 21:54 | XMS_ITS | Referral Summary ---
Author Organization [facility] Address [address] [place] [address] Care Team Providers Care Senior Architect Name Role Phone Emil Weiner MD Primary Care Provider + Encounters Date Type Department Care Team Description 04/28/2025 9:04 PM CDT Emergency [facility] Emergency Department [address] [place] [address] from Last 3 Months Allergies Active Allergy Reactions Criticality Noted Date [...] to four times a day. 100 each 03/22/20 Active alcohol swabs (Alcohol Wipes) pads, medicated Use as directed. 100 each 03/22/20 Active blood glucose strip-disp meter kit Use as directed. 1 kit 03/22/20 Active insulin glargine (insulin glargine) 100 unit/mL (3 mL) pen for injection Inject 25 Units under the skin nightly 15 mL 03/22/20 Active insulin lispro (HumaLOG, ADMELOG) 100 unit/mL pen for injectionIndicatio ns:type 2 diabetes mellitus Inject 10 Units under the skin 3 (three) times a day with meals 18 mL 03/22/20 Active naproxen (ANAPROX DS) 550 mg tabletIndications: Pain Take 1 tablet (550 mg total) by mouth 2 (two) times a day with meals 14 tablet 03/30/20 23 Active promethazine-DM (PROMETHAZINE-DM) 1.25-3 mg/mL syrupIndications:C OVID-19 virus infection Take 5 mL by mouth 4 (four) times a day as needed for cough (And runny nose) Collaborating physician Jett Marquez MD 118 mL 11/26/20 23 Active naproxen (NAPROSYN) 500 mg tabletIndications: COVID-19 virus infection Take 1 tablet (500 mg total) by mouth 2 (two) times a day with meals P.r.n. pain and/or fever. Collaborating physician Jett Marquez MD 30 tablet 11/26/20 23 Active ondansetron ODT (ZOFRAN-ODT) 4 mg disintegrating tabletIndications: COVID-19 virus infection Take 1 tablet (4 mg total) by mouth every 8 (eight) hours as needed for nausea Collaborating physician Jett Marquez MD 20 tablet 11/26/20 23 Active Active Problems Problem Noted Date Diagnosed [...] adjust sliding scale define abdomen dosing - family life educator - Nutrition Education - patient to [...] medications Assessment & Plan (10/03/2020 3:14 PM PHYSICIAN OFFICE REP): Yrs of pc urgency with loose bms [...] on file Legal Sex Female 2:11 PM PHYSICIAN OFFICE REP Gender Identity Female 09/26/2020 7:10 AM CDT [...] 04/28/2025 9:09 PM CDT Plan of Treatment Not on [...] (ABNORMAL) Differential, auto (04/28/2025 9:18 PM CDT) Pathologist [facility] Neutrophil abs 6.32 1.50 - 6.50 K/cumm Imm gran abs 0.09 0.00 - 0.10 K/cumm [facility] Lymphocyte abs 3.97(H) 0.80 - 3.30 K/cumm [facility] Monocyte abs 0.52 0.20 - 0.80 K/cumm [facility] Eosinophil abs 0.17 0.00 - 0.50 K/cumm [facility] Basophil abs 0.09 0.00 - 0.10 K/cumm [facility] Neutrophil pct 56.6 % [facility] Comment: Interpretive Data Percent cell count reference ranges are not reported, since discordance with absolute values may lead to misinterpretation of CBC data. Current Interpretive Data was last revised on 2018. Imm gran pct 0.8 % [facility] Comment: Interpretive Data Percent cell count reference ranges are not reported, since discordance with absolute values may lead to misinterpretation of CBC data. Current Interpretive Data was last revised on 2018. Lymphocyte pct 35.6 % [facility] Comment: Interpretive Data Percent cell count reference ranges are not reported, since discordance with absolute values may lead to misinterpretation of CBC data. Current Interpretive Data was last revised on 2018. Monocyte pct 4.7 % [facility] Comment: Interpretive Data Percent cell count reference ranges are not reported, since discordance with absolute values may lead to misinterpretation of CBC data. Current Interpretive Data was last revised on 2018. Eosinophil pct 1.5 % [facility] Comment: Interpretive Data Percent cell count reference ranges are not reported, since discordance with absolute values may lead to misinterpretation of CBC data. Current Interpretive Data was last revised on 2018. Basophil pct 0.8 % [facility] Comment: Interpretive Data Percent cell count reference ranges are not reported, since discordance with absolute values may lead to misinterpretation of CBC data. Current Interpretive Data was last revised on 2018. Blood 04/28/2025 9:18 PM CDT 04/28/2025 9:27 PM CDT Destiny Dhaliwal MD LAB BLOOD ORDERABLES F inal Result [facility] [address] Department of Laboratories [place], [place] [id number] * (ABNORMAL) CBC with auto differential (04/28/2025 9:18 PM CDT) WBC 11.16(H) 3.80 - 9.90 K/cumm Hgb 14.5 11.9 - 15.5 g/dL [facility] Hct 44.7 35.6 - 45.5 % [facility] Plt 295 150 - 400 K/cumm [facility] MPV 12.5(H) 9.1 - 12.3 fL [facility] RBC 4.68 3.90 - 5.20 M/cumm [facility] MCV 95.5 81.3 - 96.4 fL [facility] MCH 31.0 27.1 - 33.3 pg [facility] MCHC 32.4 32.3 - 35.7 g/dL [facility] RDW CV 12.1 11.1 - 14.9 % [facility] RDW SD 41.6 35.7 - 48.1 fL [facility] NRBC abs 0.00 0.00 - 0.01 K/cumm [facility] Blood Venous blood specimen / Unknown 04/28/2025 9:18 PM CDT 04/28/2025 9:27 PM CDT us Destniy Dhaliwal MD LAB BLOOD ORDERABLES F inal Result Performing Organization Address City/State/[facility] Co de Phone Number [facility] [address] Department [place] [address] * eGFR (06/06/2024 11:53 PM CDT) eGFR [...] of Race in Diagnosing Kidney Disease, JASN 202). The CKD-EPI equation should not be used for patients with unstable renal function and has not been validated in children and those over 70. Current interpretive data was last reviewed 2021. Blood 06/06/2024 11:5 3 PM CDT 06/06/2024 11:55 PM CDT us Cedric Saba MD LAB BLOOD ORDERABLE S Final Result Performing Organization Address City/State/[facility] Co de Phone Number [facility] (JAZ) [address] [facility] [place] [address] * (ABNORMAL) Hemoglobin A1c (03/20/2022 8:07 PM CDT) Hgb A1C 12.0(H) 4.0 - 5.6 % [facility] (JAZ) Estimated Average Glucose 298 mg/dL [facility] (JAZ) Comment: The ADA recommends reporting an estimated Average Glucose (eAG) with all Hemoglobin A1c results using the equation derived from a study of 507 normal and diabetic adults. Minority populations were underrepresented and children were not included. (Diabetes Care 31:6489-5616, 2008). The eAG is not equivalent to a fasting glucose. Blood 03/20/2022 8:07 PM CDT 03/20/2022 10:46 PM CDT Cate Tracy MD LAB BLOOD ORDERABLES Fin al Result Performing Organization Address [facility] Co de Phone Number [facility] ([place]) [address] [facility] [address] from Last 3 Months or Most Recently Relevant to Health Maintenance Insurance [facility] IDPA [facility] [place] [address] [place] [address] [facility] Advance Directives For more information, please contact: [phone] * Full Code (Latest Code Status on File) Date Activated Date Inactivated Comments 03/21/2022 12:56 AM 03/22/2022 8:26 PM Care Teams Senior Architect Relationship Specialty Start Date End Date Emil Weiner MD PCP - General Family Medicine 03/30/23
--- OUTSIDE RECORDS SUMMARY | 2025-04-28 21:54 | XMS_ITS ---
Author Organization [facility] Care Team Providers Care Powertrain Design Engineer Name Role Phone Cate Mirza [facility] Primary Care Pro vider Megan Christian MD Unavailable [facility] Status:Enrolled (Active) Start date:12/24/2024 Enrollment date:12/24/2024 Related social drivers of health:Social Connections, Financial Resource Strain, Depression, Stress, Physical Activity, Food Insecurity Continued Care and Services Coordination
== END 2025-04-28 20:39 | disposition left against medical advice (07) ==
LOC: ANHED 21:52
PROVIDERS: Emergency Provider Physician Assistant
DX: N93.8 Other specified abnormal uterine and vaginal bleeding (principal); E11.9 Type 2 diabetes mellitus without complications; K90.0 Celiac disease; F32.A Depression, unspecified; Z90.49 Acquired absence of other specified parts of digestive tract; Z79.84 Long term (current) use of oral hypoglycemic drugs; Z79.85 Long-term (current) use of injectable non-insulin antidiabetic drugs; Z79.899 Other long term (current) drug therapy
CPT/HCPCS: 99281

== ENCOUNTER 2025-09-21 18:37 | Emergency (ER) | payer OTHER, SELFPAY ==
[2025-09-21 18:39] VITALS: BP 148/85; PULSE 77; RESP 18; TEMP 36.4; O2SAT 100
--- NOTE | 2025-09-21 18:39 | ED_ITS ---
HPI - Female Genitourinary General Chief complaint: Urogenital-Female Stated complaint: POSS UTI Time Seen by Provider: 09/21/25 18:38 Source: patient Mode of arrival: ambulatory Limitations: no limitations History of Present Illness HPI Narrative: Elias is a 30-year-old female patient presenting to the clinic today with complaints of a possible UTI x2 days. Reports burning with urination, frequency, urgency, left-sided flank pain, lower abdominal pain, and low-grade temperature. States temperature has been low- 99-100? F. Has been taking azo and cranberry juice without relief. Denies any fevers, chills, body aches, nausea, vomiting, abdominal pain, or back pain. She is type 2 diabetic- insulin dependent- has insulin pump. Blood sugars 122 in the clinic today on her dex com. Rates pain an 8/10 currently- dull ache in her back. LMP was 3 months ago- history of PCOS- periods are irregular. Related Data Home Medications ?Medication ?Instructions ?Recorded ?Confirmed ?Last Taken ?Type blood-glucose sensor (Dexcom G7 09/21/25 09/21/25 Unk nown History Sensor device) insulin aspart U-100 100 unit/mL 09/21/25 Unknown Hi story subcutaneous solution Allergies Allergy/AdvReac Type Severity Reaction Status Date / Time metformin Allergy Hives Verified 09/21/25 18:43 peanut Allergy Anaphylaxis Verified 09/21/25 18:43 Review of Systems Review of Systems: Pertinent positives per HPI. Patient denies any rash, headache, visual changes, dizziness, cough, shortness of breath, chest pain, palpitations, nausea, vomiting, diarrhea, constipation. [facility] Past Medical History Medical History History of depression Diabetes Ankle fracture, right Foot fracture, right Celiac disease Surgical History Surgical History History of cholecystectomy History of appendectomy History of tonsillectomy Social History Social History Smoking status: Never smoker Alcohol intake: current Drinks per week: 1 Substance use: never Substance use type: does not use Living arrangements: with family Gender identity (if verbalized by the patient): Female Spiritual care concerns: No Comments At the time of my signature, I reviewed and agree with the nursing past medical, surgical, social, and family history. There is no relevant family history pertinent to the patient complaint. Exam Narrative: General: Well-developed, morbidly obese, in no apparent distress. Head: Normocephalic, atraumatic. Cardio: Regular rate and rhythm, s1 and s2 normal, no murmur appreciated. Resp: Clear to auscultation bilaterally, no rhonchi, rales, wheezing or rubs. Abdomen: Soft, pliable, bowel sounds present in all quadrants, bilateral lower abdomen tender to palpation, no organomegly, left flank CVAT tenderness. Course Course Emergency Course: Portions of this record may have been created with voice recognition software. Level of Care: Express Care Visit Vital Signs Vital signs: Vital Signs Temperature 36.4 C L 09/21/25 18:39 Pulse Rate 77 09/21/25 18:39 Respiratory Rate 18 09/21/25 18:39 Blood Pressure 148/85 H 09/21/25 18:39 Pulse Oximetry 100 09/21/25 18:39 Oxygen Delivery Room Air 09/21/25 18:39 Temperature 36.4 C L 09/21/25 18:39 Pulse Rate 77 09/21/25 18:39 Respiratory Rate 18 09/21/25 18:39 Blood Pressure 148/85 H 09/21/25 18:39 Pulse Oximetry 100 09/21/25 18:39 Oxygen Delivery Room Air 09/21/25 18:39 Vital signs reviewed MDM - Female Genitourinary MDM Narrative Medical decision making narrative: At the time of visit patient is resting comfortably on the exam table. Patient appears to be nontoxic. Complaints of a possible UTI x2 days. Reports burning with urination, frequency, urgency, left-sided flank pain, lower abdominal pain, and low-grade temperature. States temperature has been low- 99-100? F. Has been taking azo and cranberry juice without relief. Denies any fevers, chills, body aches, nausea, vomiting, abdominal pain, or back pain. Blood sugars 122 in the clinic today. Rates pain an 8/10 currently- dull ache in her back. LMP was 3 months ago- history of PCOS- periods are irregular. Denies any vaginal discharge. Urine dip and bedside test ordered Labs: Urinalysis dip performed and is positive for nitrates. Bedside test was negative. We will send urine for culture Plan: I suspect patient has UTI symptoms, left flank pain, and lower abdominal pain. Patient's blood sugar was 122 in the clinic per her Dexcom meter. Urine is negative for any ketones. History of PCOS. Urine is positive for nitrates. We will send urine for culture. Asking for medications for pain. Offered Toradol shot for pain and she declined. Offered to send patient to the ER for further evaluation for her symptoms but she declined at this time. Recommed tylenol/motrin for pain. Supportive measures were discussed with the patient and they voiced understanding discharge instructions and agrees to treatment plan. Return precautions reviewed Differential Diagnosis Differential diagnosis: Likely urinary tract infection, cystitis and other (Kidney stones, pyelonephritis, PCOS, muscle strain, constipation) Lab Data Labs: Lab Results 09/21/25 Range/Units 18:48 POC Urine Color Yellow POC Urine Clarity Clear POC Urine pH 5.5 POC Ur Specif [place] 1.030 POC Urine Protein Negative (Negative) POC Ur Glucose (UA) Negative (Negative) POC Urine Ketones Negative (Negative) POC Urine Blood Negative (Negative) POC Urine Nitrite Positive (Negative) POC Urine Bilirubin Negative (Negative) POC Urine Urobilinogen 0.2 POC U Leukocyte Esteras Negative (Negative) Discharge Plan Discharge Clinical Impression: Symptoms of urinary tract infection, Flank pain, left side, Bilateral lower abdominal pain Patient Disposition: Home Condition: Stable Instructions: Antibiotic Form, Urinary Tract Infection in Women (ED), Abdominal Pain (ED), Flank Pain (ED) Additional Instructions: Offered to send you to the ER for further evaluation and you declined at this time Urinalysis positive for nitrates. We will send urine for culture. Keep a tight control on your blood sugars Take Bactrim as prescribed Increase fluids and stay well hydrated May take Tylenol/Motrin as needed for pain or fever as per bottle directions May apply cool compresses or heating pad to your back to see if this helps alleviate pain May apply lidocaine patch to your back to see if this helps alleviate pain Wipe front to back. May use wet wipes. Avoid tub baths If sexually active- pee before and after intercourse. Wear cotton panties Avoid tight clothing up against the genitals Follow up with your PCP in 3-5 days if symptoms persist. Patient Language: Fijian Prescriptions: New sulfamethoxazole-trimethoprim [Bactrim DS] 800-160 mg tablet 1 tablet PO Q12H 7 Days Qty: 14 0RF No Action (DME) Dexcom G7 Sensor Device MISCELLANEOUS insulin aspart U-100 100 unit/mL solution Follow-up/Referrals: Hermes,ROMA Esposito [Primary Care Provider, Unknown] Time of Disposition: 19:02 Quality NIHSS Nursing Documentation ED NIHSS nursing documentation: reviewed/agree
[2025-09-21 18:51] LABS: EDUAAPPEAR Clear; EDUABILI Negative (Negative); EDUABLOOD Negative (Negative); EDUACOLOR1 Yellow; EDUAGLUCOSE Negative (Negative); EDUAKETONE Negative (Negative); EDUALEUKO Negative (Negative); EDUANITRATE Positive (Negative); EDUAPH 5.5; EDUAPROTEIN Negative (Negative); EDUASPGRAVITY 1.030; EDUAUROBILI 0.2
[2025-09-21 19:03] LABS: BEDSIDEPREGUCG Negative (Negative)
--- OUTSIDE RECORDS SUMMARY | 2025-09-21 20:29 | XMS_ITS | Encounter Summary ---
Author Organization [facility] Address [address] [place] [address] Phone Care Team Providers Care Oracle Programmer Analyst Name Role Phone Provider, Unknown Primary Care Provider Unavaila Cate Canales PAC Primary Care Pro vider Megan Christian MD Unavailable Encounter Details Date Type Department Care Team (Late st Contact Info) Description 01/15/2024 Behavioral Health [facility] [address] [place] [phone] Nenita Thakkar LCSW [address] [place] [address] Social History Tobacco Use Types Packs/Day Years Used Date Smoking Tobacco: Never Smokeless Tobacco: Never Alcohol Use Standard Drinks/Week Comments Yes 0 (1 standard drink = 0.6 oz pur e alcohol) occasionally Comments No Sex and Gender Information Value Date Recorded Sex Assigned at Female 05/16/2025 11:31 AM CDT Legal Sex Female 2:01 PM CDT Gender Identity Female 05/16/2025 11:31 AM CDT Sexual Orientation Not on file documented as of this encounter Plan of Treatment Not on file documented as of this encounter Goals Goal Patient Goal Type Associated Problems Recent Progress Patient-Stated? Author do better at handling stress Behavioral Health On track( 024 11:16 AM PLASTIC JIG AND FIXTURE BUILDER) Yes Nenita Thakkar LCSW documented as of this encounter Visit Diagnoses Not on filedocumented in this encounter Care Teams Oracle Programmer Analyst Relationship Specialty Start Date End Date Provider, Unknown UNKNOWN PCP - General 10/30/19 10/24/24 Cate Mirza, DEVENDRA UNKNOWN PCP - General Physician Collaborating Supervising Physician 10/25/24 Megan Christian MD [address] [phone] Consulting Physician Endocrinology 01/04/25 documented as of this encounter
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
--- OUTSIDE RECORDS SUMMARY | 2025-09-21 20:29 | XMS_ITS | Clinical Summary ---
Author Organization [facility] Address [address] [place] [address] Care Team Providers Care Spanish Speaking Nanny Name Role Phone Unknown, Provider Primary Care Provider Unavaila ble Source Comments [facility],non-owned Affiliates and Associated Physician Practices is amultiple site organization consisting of ambulatory clinics and hospital sitesin [place], [place], [place]. This disclosure is being madepursuant to the Care Everywhere program and may not contain all information available regarding this patient. Last updated 18.[facility] [employer] Allergies Active Allergy Reactions Criticality Noted Date [...] THREE TIMES DAILY 100 capsule 02/22/2025 Active Immunizations Immunization Administration Dates Next Due TDAP (7yrs+) 05/15/2014 Social History Tobacco Use Types Packs/Day Years Used Date Smoking Tobacco: Never Tobacco Cessation:Counseling Given: Not Answered Alcohol Use Standard Drinks/Week Comments No 0 (1 standard drink = 0.6 oz pur e alcohol) Comments Unknown Sex and Gender Information Value Date Recorded Sex Assigned at Female 01/12/2025 3:35 PM CANE FEEDER Legal Sex Female 7:27 AM CANE FEEDER Gender Identity Female 01/12/2025 3:35 PM CANE FEEDER Sexual Orientation Straight 01/12/2025 3: 35 PM CANE FEEDER Last Filed Vital Signs Vital Sign Reading Time Taken Comments Blood Pressure 92/71 07/24/2014 11:14 PM CDT Pulse 79 07/24/2014 11:14 PM CDT Temperature 36.8 C (98.2 F) 07/24/2014 11:14 PM CDT Respiratory Rate 16 07/24/2014 11:14 PM CDT Oxygen Saturation 100% 07/24/2014 11:14 PM CDT Inhaled Oxygen Concentration - - Weight 89.5 kg (197 lb 6.4 oz) 01/12/2025 8:50 A M CANE FEEDER Height 152.4 cm (5') 07/24/2014 9:22 PM CDT Body Mass Index - - Plan of Treatment Health Maintenance Due Date Last Done Comments HIV SCREENING 2008 HEPATITIS C SCREENING 03/08/2011 HEPATITIS B VACCINE (1 of 3 - 19+ 3-dose series) 2012 PAP SMEAR 2014 HPV VACCINE (1 - 3-dose SCDM series) 2020 DTAP/TDAP/TD VACCINES (2 - T d or Tdap) 05/15/2024 05/15/2014 DEPRESSION SCREENING 12/01/2024 COVID-19 VACCINE ( - 2023-2 5 season) 2025 INFLUENZA VACCINE (#1) 2025 4, 10/24/2004, 10/14/2003 ZOSTER VACCINE (1 of 2) [...] patient's age to complete this topic Insurance [facility] * Guarantor: ELIAS ESCALANTE Account Type Relation to Patient Date of Phone Billing Address Personal/Family Spouse Care Teams Spanish Speaking Nanny Relationship Specialty Start Date End Date Unknown, Provider PCP - General 01/12/25
--- OUTSIDE RECORDS SUMMARY | 2025-09-21 20:29 | XMS_ITS | Encounter Summary ---
Author Organization [facility] Address [address] [place] [address] Phone Care Team Providers Care Sas Developer Analyst Name Role Phone Provider, Unknown Primary Care Provider Unavaila Cate Canales PAC Primary Care Pro vider Megan Christian MD Unavailable Encounter Details Date Type Department Care Team (Late st Contact Info) Description 05/25/[address] [facility] [address] [place] [id number] Rani Blanchard, MILLER FIRST, MULTIPLE DRILL OPERATOR [address] [place] [address] Encounter for antibody response examination [...] on file documented as of this encounter Procedures Procedure [...] 0.8(L) >=1.1 AI 05/25/2021 10:57 PM CDT [facility] Blood Venipuncture / Unknown 05/25/2021 2:00 PM CDT 05/25/2021 3:51 PM CDT Narrative [facility] - 05/25/2021 10:57 PM CDT <= 0.8 Negative. No detectable VZV IgG antibody. 0.9 - 1.0 Equivocal >=1.1 Positive Antibody testing was performed by multiplex flow immunoassay on the [employer] platform. us Rani L Behrends MILLER FIRST, MULTIPLE DRILL OPERATOR IMMUNOLOGY ORDERABL ES Final Result [facility] [address] [place] [address], * RUBEOLA (MEASLES) IGG (05/25/2021 2:00 PM CDT) MEASLES AB IGG 1.9 >=1.1 AI 05/25/2021 10:57 PM CDT [facility] Blood Venipuncture / Unknown 05/25/2021 2:00 PM CDT 05/25/2021 3:51 PM CDT Narrative [facility] - 05/25/2021 10:57 PM CDT <= 0.8 Negative. No detectable Measles IgG antibody. 0.9 - 1.0 Equivocal >=1.1 Positive Antibody testing was performed by multiplex flow immunoassay on the BioPlex platform. us Rani L Behrends MILLER FIRST, MULTIPLE DRILL OPERATOR IMMUNOLOGY ORDERABL ES Final Result Performing Organization Address City/[facility]/ZIP Co de Phone Number [facility] [address] [place] [address], [place] * (ABNORMAL) RUBELLA IMMUNITY IGG (05/25/2021 2:00 PM CDT) RUBELLA IMMUNITY Nonimmune( A) Immune, Invalid 05/26/2021 6:09 AM CDT [facility] Blood Venipuncture / Unknown 05/25/2021 2:00 PM CDT 05/25/2021 3:51 PM CDT Narrative [facility] - 05/26/2021 6:09 AM CDT Antibody testing was performed by multiplex flow immunoassay on the BioPlex platform. us Rani L Behrends MILLER FIRST, MULTIPLE DRILL OPERATOR CHEMISTRY ORDERABLE S Final Result Performing Organization Address City/[facility]/ZIP Co de Phone Number [facility] [address] [place] [address], [place] * MUMPS IGG (05/25/2021 2:00 PM CDT) Mumps Ab IgG 1.1 >=1.1 AI 05/25/2021 10:57 PM CDT [facility] Blood Venipuncture / Unknown 05/25/2021 2:00 PM CDT 05/25/2021 3:51 PM CDT Narrative [facility] - 05/25/2021 10:57 PM CDT <= 0.8 Negative. No detectable Mumps IgG antibody. 0.9 - 1.0 Equivocal >=1.1 Positive Antibody testing was performed by multiplex flow immunoassay on the [employer] platform. Rani Blanchard APRN, CNP IMMUNOLOGY ORDERABL ES Final Result Performing Organization Address City/[facility] Co de Phone Number [facility] [address] [place] [address], [place] * HEPATITIS B SURFACE ANTIBODY (HBSAB) (05/25/2021 2:00 PM CDT) HEPATITIS B SURFACE ANTIBODY <8.00 mIU/mL [facility] ARCH [id number] B 05/25/2021 10:43 PM CDT [facility] Comment:Individual is consid ered not immune to HBV infection. Blood Venipuncture / Unknown 05/25/2021 2:00 PM CDT 05/25/2021 3:50 PM CDT Rani Blanchard APRN, CNP CHEMISTRY ORDERABLE S Final Result Performing Organization Address [facility] Co de Phone Number [facility] [address] [place] [address], [place] documented in this encounter Visit Diagnoses Diagnosis Encounter for antibody response examination Antibody response examination documented in this encounter Care Teams Sas Developer Analyst Relationship Specialty Start Date End Date Provider, Unknown UNKNOWN PCP - General 10/30/19 10/24/24 Cate Mirza, DEVENDRA UNKNOWN PCP - General Physician Senior Commissary Agent 10/25/24 Megan Christian MD [address] [id number] Consulting Physician Endocrinology 01/04/25 documented as of this encounter
--- OUTSIDE RECORDS SUMMARY | 2025-09-21 20:30 | XMS_ITS | Clinical Summary ---
Author Organization [facility] Address [address] [place] [address] Care Team Providers Care Base Filler Operator Name Role Phone Cate Mirza Primary Care Prov ider Allergies Active Allergy Reactions Criticality Noted Date [...] times a day with meals 14 tablet 04/30/20 23 Active promethazine-DM (PROMETHAZINE-DM) 1.25-3 mg/mL syrupIndications:C [...] hours as needed for nausea Collaborating physician Jtet Marquez MD 20 tablet 11/26/20 Active phenazopyridine (PYRIDIUM) 200 mg tablet Take 1 tablet (200 mg total) by mouth 3 (three) times a day 6 tablet 04/29/20 Active Active Problems Problem Noted Date Diagnosed [...] adjust sliding scale define abdomen dosing - hospice educator - Nutrition Education - patient to [...] medications Assessment & Plan (10/03/2020 3:14 PM MESH MAN): Yrs of pc urgency with loose bms [...] on file Legal Sex Female 2:11 PM MESH MAN Gender Identity Female 09/26/2020 7:10 AM CDT Sexual Orientation Straight 09/26/2020 7: 10 AM CDT Obstetrics History Last Filed Vital Signs Vital Sign Reading Time Taken Comments Blood Pressure 129/78 04/29/2025 4:00 AM CDT Pulse 83 04/29/2025 4:00 AM CDT Temperature 36.5 C (97.7 F) 04/28/2025 9:09 PM CDT Respiratory Rate 16 04/29/2025 4:00 AM CDT Oxygen Saturation 95% 04/29/2025 4:00 AM CDT Inhaled Oxygen Concentration - - [...] 06/05/2021 Depression Screening 03/20/2023 03/20/2022, 03/20/20 22 Influenza Vaccine (#1) 2025 4, 01/01/2006, 10/24/2004, Additional history exists eGFR 04/28/2026 04/28/2025, 07/0 05/2024, 03/22/2022, Additional history exists DTaP/Tdap/Td Vaccine (9 - Td or Tdap) 06/08/2034 06/08/2024, 05/15/2014, 01/01/2006, Additional history exists Hepatitis B Screening Completed 03/20/1994 , 1993, 1993 HPV Vaccines Completed 02/24/2008, 09/01, 06/30/2007 Procedures Procedure Name Priority Date/Time Associated Diagnosis Comments EGFR STAT 04/28/2025 9:18 PM CDT HEMOGLOBIN A1C Routine 03/20/2022 8:07 PM CDT from Last 3 Months or Most Recently Relevant to Health Maintenance Results * eGFR (04/28/2025 9:18 PM CDT) eGFR >90 >=60 mL/min/1. 73 [...] interpretive data was last reviewed 2021. Blood 04/28/2025 9:18 PM CDT 04/28/2025 9:27 PM CDT Destiny Dhaliwal MD LAB BLOOD ORDERABLES F inal Result [facility] [id number] Department [place] [address] * (ABNORMAL) Hemoglobin A1c (03/20/2022 8:07 PM CDT) Hgb A1C 12.0(H) 4.0 - 5.6 % [facility] (JAZ) Estimated Average Glucose 298 mg/dL [facility] (PERRY) Comment: The ADA recommends reporting an estimated Average Glucose (eAG) with all Hemoglobin A1c results using the equation derived from a study of 507 normal and diabetic adults. Minority populations were underrepresented and children were not included. (Diabetes Care 31:6499-1739, 2008). The eAG is not equivalent to a fasting glucose. Blood 03/20/2022 8:07 PM CDT 03/20/2022 10:46 PM CDT us Cate Tracy MD LAB BLOOD ORDERABLES Fin al Result MICHAEL StonePERRY) [address] [facility] [place] [address] from Last 3 Months or Most Recently Relevant to Health Maintenance Insurance [facility] [place] [address] [facility] Advance Directives For more information, please contact: [phone] * Full Code (Latest Code Status on File) Date Activated Date Inactivated Comments 03/21/2022 12:56 AM 03/22/2022 8:26 PM Care Teams Base Filler Operator Relationship Specialty Start Date End Date Cate Mirza PA [address] [facility] [id number] [address] PCP - General Neurosurgery 04/28/25
== END 2025-09-21 19:07 | disposition home or self-care (01) ==
PROVIDERS: Emergency Provider Nurse Practitioner Family; PCP Physician Assistant
DX: R30.0 Dysuria (principal); R35.0 Frequency of micturition; R10.A2 Flank pain, left side; R10.31 Right lower quadrant pain; R10.32 Left lower quadrant pain; E11.9 Type 2 diabetes mellitus without complications; Z79.4 Long term (current) use of insulin; Z96.41 Presence of insulin pump (external) (internal); K90.0 Celiac disease; E28.2 Polycystic ovarian syndrome
CPT/HCPCS: 81003; 81025; 87086; 99213; G0463

== ENCOUNTER 2025-11-25 08:41 | Emergency (ER) | payer OTHER, SELFPAY ==
--- NOTE | ~2025-11-25 | XR_ITS ---
EXAMINATION: XR chest 2V DATE: 11/25/2025 09:22 INDICATION: Influenza presenting with cough, shortness of breath and chest pain TECHNIQUE: PA and lateral views of the chest were obtained. COMPARISON: None FINDINGS: Subtle airspace opacity lingula. Remainder of lungs are clear. No pulmonary edema, pleural effusion or pneumothorax. The cardiomediastinal silhouette is normal. Visualized bones and soft tissues are unremarkable. IMPRESSION: 1. Subtle opacity at the lingula which could represent atelectasis or pneumonia. Reviewed, dictated and finalized at location A. [employer] IMPRESSION: 1. Subtle opacity at the lingula which could represent atelectasis or pneumonia .
--- OUTSIDE RECORDS SUMMARY | 2025-11-25 08:45 | XMS_ITS | Clinical Summary ---
Author Organization [facility] Care Team Providers Care Nursing Home Director Name Role Phone Hermes Cate Zamudioelle [facility] Primary Care Pro vider Megan Christian [...] Each 3 06/10/20 25 Active Continuous Glucose Technical Mgr (Dexcom G7 Technical Mgr) DeviceIndicatio ns:Type 2 diabetes mellitus without complication, with long-term current use of insulin,Insulin dose changed,Class 2 severe obesity due to excess calories with serious comorbidity and body mass index (BMI) of 36.0 to 36.9 in adult Check blood glucose before each meal and at bedtime 1 Each 06/22/20 25 Active Insulin Disposable Pump (Omnipod 5 [id number] Intro Gen 5) Kit Change Pod every [...] 25 Active Insulin Disposable Pump (Omnipod 5 [id number] Pods Gen 5) Misc Every 2 days 45 Each 09/08/20 25 Active Insulin Aspart (NovoLOG) 100 UNIT/ML Solution Per insulin pump setting, up to 80 units per day 80 mL 09/13/20 25 Active ondansetron (ZOFRAN) 4 MG Tablet Take 1 Tablet by mouth every 8 hours as needed for Nausea - 1st line. 10 Tablet 10/31/20 25 Active ondansetron (ZOFRAN) 4 MG Tablet Take 1 Tablet by mouth every 8 hours as needed for Nausea - 1st line. 10 Tablet 10/15/20 25 025 Discontin ued(Reord er) Active Problems Problem Noted Date Diagnosed Date Type 2 diabetes mellitus wit hout complication, with long-term current use of insulin 01/04/2025 Encounters Date Type Department Care Team Description 11/18/[address] [facility] - Primary Care - [place] [address] [place] [phone] Cate Mirza, DEVENDRA 10/15/2025 5:07 PM SPRAY GUNNER - 10/15/2025 8:39 PM SPRAY GUNNER Emergency [facility] [address] [place] [phone] Terrence Thornton, DEVENDRA Viral gastroenteritis Discharge Disposition: Discharged to home or Selfcare 10/15/2025 Travel 10/15/2025 Nurse Triage [facility] Central Call Center [address] [place] [address] Megan Christian MD High Blood Sugar 09/13/2025 Telephone [facility] Endocrinology [facility] [address] [place] [phone] Megan Christian MD Medication Refill 09/08/2025 Refill [facility] - Endocr[facility]ology - [place] [address] [place] [phone] Megan Christian MD Medication Refill from Last 3 Months Immunizations [...] Recorded In the past 12 months has [employer] electric, gas, oil, or water company threatened to [...] week 10/23/2024 How often do you attend [facility] or jain services? Patient declined 10/23/2024 Do you belong to any clubs o r organizations such as spiritism groups, unions, fraternal or athletic groups, or [...] Total Score - Questions 1-9 19 10/02 [facility] of Occupat ional Health - Occupational Stress [...] any time in the past 12 m [facility], were you homeless or living in a group home (including now)? No 10/23/2024 Comments No Sex and Gender Information Value Date Recorded Sex Assigned at Female 05/16/2025 11:31 AM CDT Legal Sex Female 2:01 PM CDT Gender Identity Female 05/16/2025 11:31 AM CDT Sexual Orientation Not on file Last Filed Vital Signs Vital Sign Reading Time Taken Comments Blood Pressure 136/101 10/15/2025 8:36 PM SPRAY GUNNER Pulse 91 10/15/2025 8:36 PM SPRAY GUNNER Temperature 36.2 C (97.1 F) 10/15/2025 5:00 PM SPRAY GUNNER Respiratory Rate 18 10/15/2025 8:36 PM SPRAY GUNNER Oxygen Saturation 100% 10/15/2025 8:36 PM SPRAY GUNNER Inhaled Oxygen Concentration - - Weight 86.2 kg (190 lb) 10/15/2025 5:00 PM SPRAY GUNNER Height 157.5 cm (5' 2) 10/15/2025 5:00 PM SPRAY GUNNER Body Mass Index 34.75 10/15/2025 5:00 PM SPRAY GUNNER Plan of Treatment Upcoming Encounters Date Type Department Care Team (Late st Contact Info) Description 12/02/2025 2:30 PM SPRAY GUNNER Office [facility] - [place] [facility] - [place] [address] [place] [phone] Cate Mirza, DEVENDRA [address] [place] [address] 12/16/2025 9:30 AM SPRAY GUNNER Office Visit [facility] - Endocrinology - [place] [address] [facility] [place] [address] Megan Christian MD [address] [phone] Health Maintenance Due Date Last Done Comments Diabetes: Eye Exam 1993 Hepatitis C Virus (HCV) Screening 1993 Varicella Immunization (1 of 2 - 13+ 2-dose series) 2006 Pneumococcal Immunization Combined (1 of 2 - PCV) 2012 Pap Smear 2014 Cervical Cancer Screening (CCS) 2023 HPV/Cotest 2023 Influenza Immunization (#1) 2025 03/0 12/2013, 10/24/2004, 10/14/2003 SARS-COV-2 Immunization ( - season) 2025 Diabetes: Hemoglobin A1c 12/23/2025 025, 11/09/2024, 03/20/2022 Diabetes: Foot Exam 01/04/2026 01/04/2025 Diabetes: Nephropathy Screening 10/15/2026 10/15/2025, 11/09/2024 DTaP/Tdap/Td Immunization (9 - Td or Tdap) [...] Behavioral Health On track( 024 11:16 AM SPRAY GUNNER) Yes Nenita Thakkar, CUTTER OUT Procedures Procedure Name Priority Date/Time Associated Diagnosis Comments RSV,SARS-COV-2,INFLUE NZA A&B BY PCR STAT 10/15/2025 6:59 PM SPRAY GUNNER URINALYSIS REFLEX IF INDICATED BY ABNORMAL RESULTS STAT 10/15/2025 6:55 PM SPRAY GUNNER CBC WITH AUTO DIFFERENTIAL STAT 10/15/2025 5:20 PM SPRAY GUNNER LIPASE STAT 10/15/2025 5:20 PM SPRAY GUNNER TEST FOR ACETONE/KETONES STAT 10/15/2025 5:20 PM SPRAY GUNNER CMP (COMPREHENSIVE METABOLIC PANEL) STAT 10/15/2025 5:20 PM SPRAY GUNNER COMPLETE BLOOD COUNT (CBC) WITH DIFF STAT 10/15/2025 5:20 PM SPRAY GUNNER POCT GLUCOSE STAT 10/15/2025 5:10 PM SPRAY GUNNER POCT GLYCOSYLATED HEMOGLOBIN Routine 06/22/2025 8:32 AM CDT Type 2 diabetes mellitus without complication, with long-term current use of insulin Insulin dose changed ([facility]) Class 2 severe obesity due to excess calories with serious comorbidity and body mass index (BMI) of 36.0 to 36.9 in adult ([facility]) from Last 3 Months or Most Recently Relevant to Health Maintenance Results * RSV,SARS-COV-2,INFLUENZA A&B BY PCR (10/15/2025 6:59 PM SPRAY GUNNER) FLU A Negative Negative, Error 10/15/2025 8:07 PM [address] [facility] FLU B Negative Negative 10/15/2025 8:07 [address] [facility] RESP SYNC VIRUS Negative Negative 8:07 PM [address] [facility] SARSCOV2 NOT DETECTED (Reference Range for this test is Not Detected) 10/15/2025 8:07 PM SPR[address] GUNNER [facility] Comment:This test was perfor med by a Reverse Rural Service Engineer PCR Method. Nasal NASOPHARYNGEAL SWAB / Unknown Non-Phlebotomy Collection / Unknown 10/15/2025 6:59 PM SPRAY GUNNER 10/15/2025 7:26 PM SPRAY GUNNER us Terrence Thornton PAC MICROBIOLOGY - GENER AL ORDERABLES Final Result [facility] [address] [place] [address] * Urinalysis w/ Reflex (10/15/2025 6:55 PM SPRAY GUNNER) SPECIFIC GRAVITY 1.010 1.003 - 1.030 10/15/2025 7:49 PM [address] [facility] URINE PH 6.0 5.0 - 9.0 10/15/2025 7:49 PM [address] [facility] WBC ESTERASE Negative Negative 10/15/2025 7:49 PM SPR[address]UN[address] [facility] NITRITE Negative Negative 10/15/2025 7:49 PM SPR[address] GUNNER [facility] PROTEIN, RANDOM URINE Negative Negative 10/15/2025 7:49 PM SPR[address]UN[address] [facility] URINE GLUCOSE, QUAL Negative Negative 10/15/2025 7:49 PM SPR[address]UN[address] [facility] URINE KETONES Negative Negative 10/15/2025 7:49 PM SPR[facility] GUNNER [facility] UROBILINOGEN Normal Normal mg/dL 10/15/2025 7:49 PM SPR[address] GUNNER [facility] URINE BLOOD Negative Negative rosa/ul 10/15/2025 7:49 PM SPR[address] GUNNER [facility] URINALYSIS COLOR Yellow 10/15/20 7:49 PM SPR[address] GUNNER [facility] URINALYSIS CLARITY Clear 10/15/2025 7:49 PM SPRAY GUNNER [facility] Urine URINE SPECIMEN / Unknown Non-Phlebotomy Collection / Unknown 10/15/2025 6:55 PM SPRAY GUNNER 10/15/2025 7:26 PM SPRAY GUNNER Terrence Thornton PAC URINE ORDERABLES Fin al Result [facility] [address] [place] [address] * (ABNORMAL) CBC with Auto Differential (10/15/2025 5:20 PM SPRAY GUNNER) [facility] WBC 11.21 4.00 - 12.00 10(3)/mcL 10/15/2025 6:11 PM [address] [facility] RBC 4.58 3.80 - 5.30 10(6)/mcL 10/15/2025 6:11 PM [address]UN[address] [facility] HEMOGLOBIN (HGB) 14.6 12.0 - 15.8 g/dL 10/15/2025 6:11 PM [address] [facility] HEMATOCRIT (HCT) 43.1 36.0 - 47.0 % 10/15/2025 6:11 PM [address] [facility] MCV 94.1 82.0 - 96.0 fL 10/15/2025 6:11 PM [facility] MCH 31.9 26.0 - 34.0 pg 10/15/2025 6:11 PM SPR[address] GUNNER [facility] MCHC 33.9 31.0 - 36.0 g/dL 10/15/2025 6:11 PM [facility] PLATELET COUNT 312 140 - 440 10(3)/mcL 10/15/2025 6:11 PM SPRAY GUNNER [facility] RDW 12.2 11.8 - 15.5 % 10/15/2025 6:11 PM [facility] MPV 12.5(H) 9.7 - 12.4 fL 10/15/2025 6:11 PM [address] [facility] NEUTROPHILS 59.9 47.0 - 73.0 % 10/15/2025 6:11 PM [address] [facility] LYMPHOCYTES 30.3 18.0 - 42.0 % 10/15/2025 6:11 PM [address] [facility] MONOCYTES 6.2 4.0 - 12.0 % 10/15/2025 6:11 PM [address] [facility] EOSINOPHILS 2.1 0.0 - 5.0 % 10/15/2025 6:11 PM SPRAY GUNNER [facility] BASOPHILS 0.7 0.0 - 1.0 % 10/15/2025 6:11 PM SPRAY GUNNER [facility] IMMATURE GRANULOCYTE 0.8(H) 0.0 - 0.4 % 10/15/2025 6:11 PM SPRAY GUNNER [facility] Comment:Immature Granulocyte s includes Metamyelocytes, Myelocytes, and Promyelocytes. ABSOLUTE NEUTROPHILS 6.72 1.60 - 7.70 10(3)/[facility] 10/15/2025 6:11 PM SPRAY GUNNER [facility] ABSOLUTE LYMPHOCYTES 3.40(H) 1.30 - 3.20 10(3)/[facility] 10/15/2025 6:11 PM SPRAY GUNNER [facility] ABSOLUTE MONOCYTES 0.69 0.20 - 1.00 10(3)/[facility] 10/15/2025 6:11 PM [facility] ABSOLUTE EOSINOPHIL 0.23 0.00 - 0.40 10(3)/[facility] 10/15/2025 6:11 PM SPRAY GUNNER [facility] ABSOLUTE BASOPHILS 0.08 0.00 - 0.10 10(3)/[facility] 10/15/2025 6:11 PM [facility] ABSOLUTE IMMATURE GRANULOCYTE 0.09(H) 0.00 - 0.03 10 (3) mcL. 10/15/2025 6:11 PM [facility] NRBC PER 100 WBC 0 10/15/20 25 6:11 PM [facility] Blood Venipuncture / Unknown 10/15/2025 5:20 PM SPRAY GUNNER 10/15/2025 6:09 PM SPRAY GUNNER us Paul Reynoso MD HEMATOLOGY ORDERABLES Fi nal Result [facility] [address] [place] [address] * Lipase (10/15/2025 5:20 PM SPRAY GUNNER) LIPASE 62 8 - 78 U/L 10/15/2025 6:28 PM SPRAY GUNNER [facility] Blood Venipuncture / Unknown 10/15/2025 5:20 PM SPRAY GUNNER 10/15/2025 6:09 PM SPRAY GUNNER Terrence Singh Hillary PAC CHEMISTRY ORDERABLES Final Result [facility] [address] [place] [address] * (ABNORMAL) CMP (Comprehensive Metabolic Panel) (10/15/2025 5:20 PM SPRAY GUNNER) SODIUM 141 136 - 145 mmol/L 10/15/2025 6:28 PM [facility] POTASSIUM 4.0 3.5 - 5.1 mmol/L 10/15/2025 6:28 PM [facility] CHLORIDE 106 98 - 107 mmol/L 10/15/2025 6:28 PM [facility] CO2, VENOUS 23 22 - 30 mmol/L 10/15/2025 6:28 PM [facility] ANION GAP 16.0 <18.0 mmol/L 10/15/2025 6:28 PM [facility] GLUCOSE 123(H) 70 - 99 mg/dL 10/15/2025 6:28 PM [facility] BUN 11 5 - 18 mg/dL 10/15/2025 6:28 PM [facility] CREATININE, BLOOD 0.63 0.60 - 1.00 mg/dL 10/15/2025 6:28 PM [facility] BUN/CREATININE RATIO 17 12 - 20 ratio 10/15/2025 6:28 PM [facility] TOTAL PROTEIN 8.1(H) 6.0 - 8.0 g/dL 10/15/2025 6:28 PM [facility] ALBUMIN 5.0 3.5 - 5.0 g/dL 10/15/2025 6:28 PM [facility] A/G RATIO 1.6 1.0 - 2.2 10/15/2025 6:28 PM SPR[address] GUN[address] [facility] CALCIUM 9.9 8.7 - 10.5 mg/dL 10/15/2025 6:28 PM SPR[facility] [address]UN[address] [facility] T BILI 0.5 0.2 - 1.2 mg/dL 10/15/2025 6:28 PM SPR[facility] [address] [facility] SGOT (AST) 24 <43 U/L 10/15/2025 6:28 PM [facility] SGPT (ALT) 35 <56 U/L 10/15/2025 6:28 PM SPRAY GUNNER [facility] ALKALINE PHOSPHATASE 93 40 - 150 U/L 10/15/2025 6:28 PM SPR[facility] GUNNER [facility] GFR, ESTIMATED >60 >=60 10/15/2025 6:28 PM [facility] Comment: Creatinine Clearance is the preferred criteria for selecting drug dose adjustments in renally impaired patients. The GFR is provided as additional pertinent clinical information. GFR is reported in mL/min/1.73 sq m. Calculation based on the 2020 Chronic Kidney Disease Epidemiology Collaboration (CKD-EPI) equation refit without adjustment for race. GFR, EST. >60 >=60 6:28 PM [facility] Comment: Creatinine Clearance is the preferred criteria for selecting drug dose adjustments in renally impaired patients. The GFR is provided as additional pertinent clinical information. GFR is reported in mL/min/1.73 sq m. Calculation based on the 2009 Chronic Kidney Disease Epidemiology Collaboration (CKD-EPI). GFR, EST. NONAFRICAN >60 >=60 10/15/2025 6:28 PM [facility] Comment: Creatinine Clearance is the preferred criteria for selecting drug dose adjustments in renally impaired patients. The GFR is provided as additional pertinent clinical information. GFR is reported in mL/min/1.73 sq m. Calculation based on the 2009 Chronic Kidney Disease Epidemiology Collaboration (CKD-EPI). Blood Venipuncture / Unknown 10/15/2025 5:20 PM SPRAY GUNNER 10/15/2025 6:09 PM SPRAY GUNNER us Paul Reynoso MD CHEMISTRY ORDERABLES Fin al Result [facility] [address] [place] [address] * Acetone Qualitative-Blood [id number] (10/15/2025 5:20 PM SPRAY GUNNER) ACETONE Negative Negative 10/15/2025 6:29 [address] [facility] Blood Venipuncture / Unknown 10/15/2025 5:20 PM SPRAY GUNNER 10/15/2025 6:09 PM SPRAY GUNNER Narrative [facility] - 10/15/2025 6:29 PM SPRAY GUNNER us Paul Reynoso MD CHEMISTRY ORDERABLES Fin al Result Performing Organization Address City/[facility] Co de Phone Number [facility] [address] [place] [address] * (ABNORMAL) POCT Glucose (10/15/2025 5:10 PM SPRAY GUNNER) GLUCOSE,BEDSID E POCT 134(H) 70 - 99 mg/dL 10/15/2025 5:30 PM [address]UNNER [facility] Comment: RN Notified LEXIE MARR Blood 10/15/2025 5:10 PM SPRAY GUNNER 10/15/2025 5:30 PM SPRAY GUNNER us None Provider POINT OF CARE TESTING Final Resu lt [facility] [address] [place] [address] * (ABNORMAL) POCT GLYCOSYLATED HEMOGLOBIN (06/22/2025 8:32 AM CDT) HGB-A1C 8.1(A) 4 - 6 % Blood 06/22/2025 8:32 AM CDT Megan Christian MD POINT OF CARE TESTING (MANUAL) F inal Result from Last 3 Months or Most Recently Relevant to Health Maintenance Insurance [employer]ICA[employer] Care Teams Nursing Home Director Relationship Specialty Start Date End Date Cate Mirza PAC PCP - General Physician Application Coordinator 10/25/24 Megan Christian MD [address] [address] Consulting Physician Endocrinology 01/04/25
--- OUTSIDE RECORDS SUMMARY | 2025-11-25 08:45 | XMS_ITS | Encounter Summary ---
Author Organization [facility] Address [address] [place] [address] Phone Care Team Providers Care Title Lawyer Name Role Phone Provider, Unknown Primary Care Provider Unavaila Cate Canales PAC Primary Care Pro vider Megan Christian MD Unavailable Encounter Details Date Type Department Care Team (Late st Contact Info) Description 01/15/2024 Behavioral Health [facility] [address] [place] [address] Nenita Thakkar, [facility] [address] [place] [address] Social History Tobacco Use Types Packs/Day Years [...] st Contact Info) Description 12/02/2025 2:30 PM BENCH EXAMINER Office Visit [facility] - [place] Care - [place] [facility] [place] [address] Cate Mirza, [facility] [address] [place] [address] 12/16/2025 9:30 AM BENCH EXAMINER [facility] - [place] [address] [place] [address] Megan Christian MD [address] [facility] [address] [place] [address] documented as of this encounter Goals Goal Patient Goal Type Associated Problems Recent Progress Patient-Stated? Author do better at handling stress Behavioral Health On track( 024 11:16 AM BENCH EXAMINER) Yes Nenita Thakkar, ENVIRONMENTAL ENGINEERING AIDE documented as of this encounter Visit Diagnoses Not on filedocumented in this encounter Additional Health Concerns Infection Onset Date Last Indicated Resolved Time Respiratory Rule-Out 10/15/2025 10/15/2025 025 8:07 PM BENCH EXAMINER documented as of this encounter Care Teams Title Lawyer Relationship Specialty Start Date End Date Provider, Unknown UNKNOWN PCP - General 10/30/19 10/24/24 Cate Mirza, DEVENDRA UNKNOWN PCP - General Physician Organ Pipe Voicer 10/25/24 Megan Christian MD [address] [phone] Consulting Physician Endocrinology 01/04/25 documented as of this encounter
--- OUTSIDE RECORDS SUMMARY | 2025-11-25 08:45 | XMS_ITS | Encounter Summary ---
Author Organization [facility] Address [address] [place] [address] Phone Care Team Providers Care Airline Stewardess Name Role Phone Provider, Unknown Primary Care Provider Unavaila Cate Canales PAC Primary Care Pro vider Megan Christian MD Unavailable Encounter Details Date Type Department Care Team (Late Contact Info) Description 05/25/2021 [facility] [address] [place] [phone] Rani Blanchard, CHAIRMAN & CO FOUNDER, MARINE WATER TENDER [address] [place] [address] Encounter for antibody response examination Social History [...] Department Care Team (Late Contact Info) Description 12/02/2025 2:30 PM CUSTOMER SERVICE AGENT Office Visit [facility] - Primary Care [place] [phone] Cate Mirza PAC [address] [place] [address] 12/16/2025 9:30 AM CUSTOMER SERVICE AGENT Office Visit [facility] - Endocrinology - [address] [place] [phone] Megan Christian MD [address] [phone] documented as of this encounter Procedures Procedure [...] 0.8(L) >=1.1 AI 05/25/2021 10:57 PM CDT [facility] Blood Venipuncture / Unknown 05/25/2021 2:00 PM CDT 05/25/2021 3:51 PM CDT Narrative [facility] - 05/25/2021 10:57 PM CDT <= 0.8 Negative. No detectable VZV IgG antibody. 0.9 - 1.0 Equivocal >=1.1 Positive Antibody testing was performed by multiplex flow immunoassay on the BioPlex platform. Rani L Behrends CHAIRMAN & CO FOUNDER, MARINE WATER TENDER IMMUNOLOGY ORDERABL ES Final Result Performing Organization Address [facility] de Phone Number [facility] [address] [place] [address], [place] * RUBEOLA (MEASLES) IGG (05/25/2021 2:00 PM CDT) MEASLES AB IGG 1.9 >=1.1 AI 05/25/2021 10:57 PM CDT [facility] Blood Venipuncture / Unknown 05/25/2021 2:00 PM CDT 05/25/2021 3:51 PM CDT Narrative [facility] - 05/25/2021 10:57 PM CDT <= 0.8 Negative. No detectable Measles IgG antibody. 0.9 - 1.0 Equivocal >=1.1 Positive Antibody testing was performed by multiplex flow immunoassay on the BioPlex platform. Rani L Behrends CHAIRMAN & CO FOUNDER, MARINE WATER TENDER IMMUNOLOGY ORDERABL ES Final Result Performing Organization Address [facility] de Phone Number [facility] [address] [place] [address], [place] * (ABNORMAL) RUBELLA IMMUNITY IGG (05/25/2021 2:00 PM CDT) RUBELLA IMMUNITY Nonimmune( A) Immune, Invalid 05/26/2021 6:09 AM CDT [facility] Blood Venipuncture / Unknown 05/25/2021 2:00 PM CDT 05/25/2021 3:51 PM CDT Narrative [facility] - 05/26/2021 6:09 AM CDT Antibody testing was performed by multiplex flow immunoassay on the BioPlex platform. us Rani Sandra Blanchard CHAIRMAN & CO FOUNDER, MARINE WATER TENDER CHEMISTRY ORDERABLE S Final Result Performing Organization Address City/[facility]/ZIP Co de Phone Number [facility] [address] [place] [address], [place] * MUMPS IGG (05/25/2021 2:00 PM CDT) Mumps Ab IgG 1.1 >=1.1 AI 05/25/2021 10:57 PM CDT [facility] Blood Venipuncture / Unknown 05/25/2021 2:00 PM CDT 05/25/2021 3:51 PM CDT Narrative [facility] - 05/25/2021 10:57 PM CDT <= 0.8 Negative. No detectable Mumps IgG antibody. 0.9 - 1.0 Equivocal >=1.1 Positive Antibody testing was performed by multiplex flow immunoassay on the [employer] platform. us Ranijaiden Blanchard CHAIRMAN & CO FOUNDER, MARINE WATER TENDER IMMUNOLOGY ORDERABL ES Final Result Performing Organization Address [facility] Co de Phone Number [facility] [address] [place] [address], [place] * HEPATITIS B SURFACE ANTIBODY (HBSAB) (05/25/2021 2:00 PM CDT) HEPATITIS B SURFACE ANTIBODY <8.00 mIU/mL [facility] [id number] B 05/25/2021 10:43 PM CDT [facility] Comment:Individual is consid ered not immune to HBV infection. Blood Venipuncture / Unknown 05/25/2021 2:00 PM CDT 05/25/2021 3:50 PM CDT us Rani Sandra Delcidrenrenan CHAIRMAN & CO FOUNDER, MARINE WATER TENDER CHEMISTRY ORDERABLE S Final Result Performing Organization Address City/[facility]/ZIP Co de Phone Number [facility] [address] [place] [address], [place] documented in this encounter Visit Diagnoses Diagnosis Encounter for antibody response examination Antibody response examination documented in this encounter Additional Health Concerns Infection Onset Date Last Indicated Resolved Time Respiratory Rule-Out 10/15/2025 10/15/2025 025 8:07 PM CUSTOMER SERVICE AGENT documented as of this encounter Care Teams Airline Stewardess Relationship Specialty Start Date End Date Provider, Unknown UNKNOWN PCP - General 10/30/19 10/24/24 Cate Mirza, DEVENDRA UNKNOWN PCP - General Physician Sewer Pipe Layer Helper 10/25/24 Megan Christian MD [address] [phone] Consulting Physician Endocrinology 01/04/25 documented as of this encounter
--- OUTSIDE RECORDS SUMMARY | 2025-11-25 08:45 | XMS_ITS | Clinical Summary ---
Author Organization [facility] Address [address] [place] [address] Care Team Providers Care Patient Access Associate Name Role Phone Unknown, Provider Primary Care Provider Unavaila ble Source Comments [facility],non-owned Affiliates and Associated Physician Practices is amultiple site organization consisting of ambulatory clinics and hospital sitesin [place] and [place]. This disclosure is being madepursuant to the Care Everywhere program and may not contain all information available regarding this patient. Last updated 18.[facility] Allergies Active Allergy Reactions Criticality Noted Date [...] Sex Assigned at Female 01/12/2025 3:35 PM MARKETING STRATEGY LEAD Legal Sex Female 7:27 AM MARKETING STRATEGY LEAD Gender Identity Female 01/12/2025 3:35 PM MARKETING STRATEGY LEAD Sexual Orientation Straight 01/12/2025 3: 35 PM MARKETING STRATEGY LEAD Last Filed Vital Signs Vital Sign Reading Time Taken Comments Blood Pressure 92/71 07/24/2014 11:14 PM CDT Pulse 79 07/24/2014 11:14 PM CDT Temperature 36.8 C (98.2 F) 07/24/2014 11:14 PM CDT Respiratory Rate 16 07/24/2014 11:14 PM CDT Oxygen Saturation 100% 07/24/2014 11:14 PM CDT Inhaled Oxygen Concentration - - Weight 89.5 kg (197 lb 6.4 oz) 01/12/2025 8:50 A M MARKETING STRATEGY LEAD Height 152.4 cm (5') 07/24/2014 9:22 PM [...] DEPRESSION SCREENING 12/01/2024 COVID-19 VACCINE ( - 2024-2 6 season) 2025 INFLUENZA VACCINE (#1) 2025 4, [...] patient's age to complete this topic Insurance [facility] * Guarantor: ELISA ESCALANTE Account Type Relation to Patient Date of Phone Billing Address Personal/Family Spouse Care Teams Patient Access Associate Relationship Specialty Start Date End Date Unknown, Provider PCP - General 01/12/25
--- OUTSIDE RECORDS SUMMARY | 2025-11-25 08:46 | XMS_ITS | Clinical Summary ---
Author Organization [facility] Address [address] [place] [address] Care Team Providers Care Dosier Operator Name Role Phone Cate Mirza Primary [...] Jett Marquez MD 20 tablet 11/26/20 Active phenazopyridine [...] adjust sliding scale define abdomen dosing - development educator - Nutrition Education - patient to [...] medications Assessment & Plan (10/03/2020 3:14 PM EMBOSSING PRESS OPERATOR MOLDED GOODS): Yrs of pc urgency with loose bms [...] on file Legal Sex Female 2:11 PM EMBOSSING PRESS OPERATOR MOLDED GOODS Gender Identity Female 09/26/2020 7:10 AM CDT [...] BLOOD ORDERABLES F inal Result [facility] [address] [place] [address] * (ABNORMAL) Hemoglobin A1c (03/20/2022 8:07 PM CDT) Hgb A1C 12.0(H) 4.0 - 5.6 % [facility] ([facility]) Estimated Average Glucose 298 mg/dL [facility] ([facility]) Comment: The ADA recommends reporting an estimated Average Glucose (eAG) with all Hemoglobin A1c results using the equation derived from a study of 507 normal and diabetic adults. Minority populations were underrepresented and children were not included. (Diabetes Care 31:8054-5260, 2008). The eAG is not equivalent to a fasting glucose. Blood 03/20/2022 8:07 PM CDT 03/20/2022 10:46 PM CDT us Cate Tracy MD LAB BLOOD ORDERABLES Fin al Result [facility] ([facility]) [address] [facility] [place] [address] from Last 3 Months or Most Recently Relevant to Health Maintenance Insurance [facility] [place] [address] [facility] Advance Directives For more information, please contact: [phone] * Full Code (Latest Code Status on File) Date Activated Date Inactivated Comments 03/21/2022 12:56 AM 03/22/2022 8:26 PM Care Teams Dosier Operator Relationship Specialty Start Date End Date Cate Mirza PA [address] [facility] [address] PCP - General Neurosurgery 04/28/25
[2025-11-25 08:51] VITALS: BP 131/78; PULSE 105; RESP 16; TEMP 35.8; O2SAT 98
--- NOTE | 2025-11-25 09:12 | ED.URI ---
HPI - URI/Sore Throat General Chief Complaint: Upper Respiratory Infection Stated Complaint: Cough/Sore Throat/Body Aches Time Seen by Provider: 11/25/25 08:55 Source: patient Mode of arrival: ambulatory Limitations: no limitations History of Present Illness HPI Narrative: Elias is a 30-year-old female patient presenting to the clinic today with complaints of cough, sore throat, body aches, chills, shortness of breath, and chest tightness. She reports symptoms have been going on for approximately 5 days. She tested positive at home for influenza B yesterday. Related Data Home Medications ?Medication ?Instructions ?Recorded ?Confirmed ?Last Taken ?Type blood-glucose sensor (Dexcom G7 09/21/25 09/21/25 Unknown History Sensor device) insulin aspart U-100 100 unit/mL 09/21/25 Unknown History subcutaneous solution Allergies Allergy/AdvReac Type Severity Reaction Status Date / Time latex Allergy Unknown Unknown Verified 11/25/25 08:55 metformin Allergy Hives Verified 11/25/25 08:55 peanut Allergy Anaphylaxis Verified 11/25/25 08:55 Review of Systems Review of Systems: Pertinent positives per HPI. Patient denies any fever, chills, rash, headache, visual changes, dizziness, cough, shortness of breath, chest pain, palpitations, nausea, vomiting, diarrhea, constipation, abdominal pain, or any urinary issues. PMFSH Past Medical History Medical History History of depression Diabetes Ankle fracture, right Foot fracture, right Celiac disease Surgical History Surgical History History of cholecystectomy History of appendectomy History of tonsillectomy Social History Social History Smoking status: Never smoker Alcohol intake: current Drinks per week: 1 Substance use: never Substance use type: does not use Living arrangements: with family Gender identity (if verbalized by the patient): Female Spiritual care concerns: No Comments At the time of my signature, I reviewed and agree with the nursing past medical, surgical, social, and family history. There is no relevant family history pertinent to the patient complaint. Exam Narrative: General: Well-developed, well nourished, in no apparent distress Head: Normocephalic, atraumatic Eyes: Pupils equally round and reactive to light bilaterally, EOM intact, sclera and conjunctive clear, no discharge, lids normal Ears: TMs intact and clear, ear canals clear, no drainage, grossly hearing normal. Nose: Nares patent, no discharge, no inflammation, no sinus tenderness. Mouth: Oral pharynx without lesions or masses, good dentition, MMM. Neck: Supple, trachea midline, no enlargement of anterior or posterior cervical nodes, no thyroid masses or goiter palpable. Cardio: Regular rate and rhythm, s1 and s2 normal, no murmur appreciated. Resp: Clear to auscultation bilaterally, no rhonchi, rales, wheezing or rubs Course Course Level of Care: Express Care Visit Vital Signs Vital signs: Vital Signs Temperature 35.8 C L 11/25/25 08:51 Pulse Rate 105 H 11/25/25 08:51 Respiratory Rate 16 11/25/25 08:51 Blood Pressure 131/78 11/25/25 08:51 Pulse Oximetry 98 11/25/25 08:51 Oxygen Delivery Room Air 11/25/25 08:51 Temperature 35.8 C L 11/25/25 08:51 Pulse Rate 105 H 11/25/25 08:51 Respiratory Rate 16 11/25/25 08:51 Blood Pressure 131/78 11/25/25 08:51 Pulse Oximetry 98 11/25/25 08:51 Oxygen Delivery Room Air 11/25/25 08:51 [facility] MDM Narrative Medical decision making narrative: At the time of visit patient is resting comfortably on the exam table. Patient appears to be nontoxic. complaints of cough, sore throat, body aches, chills, shortness of breath, and chest tightness. She reports symptoms have been going on for approximately 5 days. She tested positive at home for influenza B yesterday. On exam patient has bilateral TMs intact and congested, clear nasal drainage, mild anterior turbinate inflammation, no sinus tenderness, oral pharynx red with postnasal drip, lung sounds inspiratory rhonchi with expiratory wheezing, heart rates regular rate and rhythm-tachycardic. Chest x-ray was ordered. Diagnostics: Chest x-ray was performed and shows possible atelectasis versus pneumonia. Plan: I suspect patient has pneumonia. Will cover for bacterial pneumonia however this is likely viral as she is influenza B positive. Will send in prescription for doxycycline, Augmentin, albuterol inhaler, and Mucinex. Supportive measures were discussed with the patient and they voiced understanding discharge instructions and agrees to treatment plan. Return precautions reviewed Differential Diagnosis Differential Diagnosis: Differential diagnostic considerations for upper respiratory infection include upper respiratory infection, croup, otitis media, sinusitis, viral infection, bronchitis, influenza, pharyngitis, strep, uvulitis, pneumonia Imaging Data Radiologist's impression: ITS Impressions Chest X-Ray 11/25/25 09:23 IMPRESSION: 1. Subtle opacity at the lingula which could represent atelectasis or pneumonia. Discharge Plan Discharge Clinical Impression: Pneumonia Qualifiers: Pneumonia type: due to unspecified organism Laterality: unspecified laterality Lung location: unspecified part of lung Qualified Code(s): J18.9 - Pneumonia, unspecified organism Patient Disposition: Home Condition: Stable Instructions: Antibiotic Form, Pneumonia (ED) Additional Instructions: Take prescription medications only as prescribed-azithromycin, Augmentin, and prednisone Keep a tight control in your blood sugar Increase fluids and stay well hydrated May take Tylenol or motrin as directed on bottle for pain/fever May use Flonase 1 spray in each nare daily May take OTC antihistamines such as Zyrtec or Claritin daily as directed on bottle May apply Vicks vapor rub to chest to open sinuses Sinus rinses for congestion Cepacol spray, cough drops, throat lozenges, warm tea with honey/lemon, gargle salt water to soothe throat BRAT diet for diarrhea Clear liquids x 24 hours then advance as tolerated for nausea/vomiting Go to the ED if you develop a worsening in your condition- high fever not controlled by Tylenol or Motrin, dehydration, weakness, lethargy, shortness of breath, or chest pain. Follow up with your PCP in 3-5 days if symptoms persist. Patient Language: Croatian Prescriptions: New amoxicillin-pot clavulanate 875-125 mg tablet 1 tablet PO Q12H 7 Days Qty: 14 0RF doxycycline monohydrate 100 mg capsule 100 mg PO BID 7 Days Qty: 14 0RF albuterol sulfate 90 mcg/actuation HFA aerosol inhaler 2 puff inhalation Q4-6H PRN (Reason: shortness of breath or wheezing) 30 Days Qty: 8.5 0RF guaifenesin [Mucinex] 600 mg tablet extended release 12hr 600 mg PO BID PRN (Reason: congestion) 7 Days Qty: 14 0RF No Action (DME) Dexcom G7 Sensor Device MISCELLANEOUS insulin aspart U-100 100 unit/mL solution Follow-up/Referrals: Hermes,ROMA Esposito [Primary Care Provider, Unknown] Time of Disposition: 09:31 Quality NIHSS Nursing Documentation ED NIHSS nursing documentation: reviewed/agree
== END 2025-11-25 09:43 | disposition home or self-care (01) ==
PROVIDERS: Emergency Provider Nurse Practitioner Family; PCP Physician Assistant
DX: J18.9 Pneumonia, unspecified organism (principal); E11.9 Type 2 diabetes mellitus without complications; Z79.4 Long term (current) use of insulin; K90.0 Celiac disease
CPT/HCPCS: 71046; 99213; G0463